=== PATIENT | female | born 2000 | race Caucasian/White ===

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

== ENCOUNTER 2020-04-28 21:04 | Observation (INO) ==
[2020-04-28] MEDS ORDERED: SODIUM CHLORIDE 0.9% 1000ML 2,000 ML IV ONE (21:21)
--- NOTE | 2020-04-28 21:33 | Emergency Department Note ---
Impression & Plan Vomiting blood, Abdominal pain, High serum chloride ED Provider Note NAME: LUIZ JEAN BAPTISTE AGE: 19 SEX: F : 2000 ARRIVES VIA: Walk-In INFORMANT: Patient ED PROVIDER(S): Handy Feng DO CHIEF COMPLAINT: Vomiting blood HPI: Patient is a 19-year-old female who presents the ER for right lower quadrant abdominal pain. Started earlier today. She describes it as about an 8 out of 10. No radiation. She does have a history of gastric ulcers. Notes that she does take Motrin/ibuprofen fairly regularly but not on a daily basis. She had an EGD through [facility] and was found to have gastric ulcers. She vomited about 4 times today each with at least a tablespoon of bright red blood. She notes that she has also been having dark tarry stools since the first of this month. She has also been having that right lower quadrant pain since then as well. Uncertain of the last menstrual period as she is on control. Denies any dysuria urgency or frequency. She admits to being scoped by [facility] when she was under 18 but has not been scoped by them since. ROS: See above HPI for pertinent positives & negatives. A total of 10 systems reviewed and were otherwise negative. PAST MEDICAL HISTORY:See Below PAST SURGICAL HISTORY:See Below FAMILY HISTORY:See Below SOCIAL HISTORY:See Below HOME MEDICATIONS:See Below ALLERGIES:See Below VITALS:See Below PHYSICAL EXAMINATION: GENERAL: Sitting up in bed, alert, well appearing, well nourished, no distress, non-toxic EYE EXAM: normal conjunctiva. PERRL and EOM's grossly intact. OROPHARYNX: no exudate, no erythema, lips, buccal mucosa, and tongue normal and mucous membranes are moist NECK: supple, no nuchal rigidity, no adenopathy, non-tender LUNGS: Clear to auscultation. Normal chest wall mechanics HEART: no murmurs, S1 normal and S2 normal ABDOMEN: abdomen soft, non-tender, normo-active bowel sounds, no masses, no rebound or guarding. RECTAL: Heme-negative formed with female tech at bedside. BACK: Back is symmetrical on inspection and there is no deformity, no midline tenderness, no CVA tenderness. SKIN: no rashes and no bruising UPPER EXTREMITIES: upper extremities are grossly normal. LOWER EXTREMITIES: No pitting edema. NEURO EXAM: Normal sensorium, cranial nerves II-XII grossly intact, normal speech, no gross weakness of arms, no gross weakness of legs. MEDICAL DECISION MAKING: Patient is a 19-year-old female who presents the ER for abdominal pain. This has been going on for a week. On exam she has mild diffuse tenderness. IV was established blood work was obtained. Labs show mild leukocytosis of 11,000 but no significant anemia. INR was unremarkable. BMP along with LFTs bilirubin and troponin was negative. Rectal was negative but there is no stool present. BUN was not elevated. Hemoglobin did drop 1 g from [address] abdomen pelvis shows no acute pathology. Patient was given GI cocktail, IV Protonix with minimal improvement. She was given IV morphine. Patient was given IV fluids and IV Zofran. Discussed with Pt concerning signs and symptoms to watch out for. Pt was instructed to follow up with their PCP and discussed with the patient their option to return to the ED at anytime for persistent or worsening symptoms. The appropriate anticipatory guidance and out-patient management, including indications for return to the emergency department, were explained at length to the patient and understood. Triage Nursing notes reviewed. Prior medical records reviewed Vital Signs: reviewed and remarkable for no significant abnormalities Differential diagnosis: Differential diagnosis includes etiologies such as diverticulitis, diverticulosis, AVM, coagulopathy, colitis, inflammatory bowel disease, malignancy, Arleen-Sinclair tear, esophagitis, peptic ulcer disease, variceal bleed, gastritis, epistaxis, fissure, hemorrhoids, as well as others were entertained. ER treatment provided: See below Diagnostics interpreted by me: ECG: none Cardiac Monitoring: An order was placed for continuous cardiac monitoring. The monitor shows a rate of 68 with sinus rhythm. Laboratory studies: As stated above and show below. Imaging studies: CT of the pelvis shows no acute pathology. Consultation(s): D/w Dr. Lyman ED COURSE: Procedures: none Critical Care: None Past Med/Surg History Social History Preferred Language: French Communication Ability: Effective [employer] Specialist Required: No Beliefs That Will Affect Care: None marital status: Single Current Living Situation: Family Current Living Situation Comment: Lives with parents Feels Safe at Home: Yes Smoking Status: Never smoker Tobacco Type: cigarettes ; Cigarettes Per Day: 6 ; Second Hand Exposure: Yes ; Hx Alcohol Use: No Hx Substance Use: No Allergies Allergies Allergy/AdvReac Type Severity Reaction Status Date / Time No Known Allergies Allergy NONE Verified 04/28/20 22:04 Home Meds Home Medications Medication Instructions Recorded Confirmed etonogestrel [Nexplanon] 0 mg SUBDERMAL CONTINOUS 04/22/20 04/28/20 fluoxetine 80 mg PO QAM 04/22/20 04/28/20 lamotrigine 100 mg PO QAM 04/22/20 04/28/20 melatonin 3 mg PO HS PRN 04/22/20 04/28/20 prazosin 1 mg PO HS 04/22/20 04/28/20 trazodone 50 mg PO HS PRN 04/22/20 04/28/20 Previous Rx's Medication Instructions Recorded docusate sodium [Colace] 100 mg PO BID #60 cap 04/22/20 oxycodone 5 mg PO Q6H PRN #14 tab 04/22/20 sennosides [Senokot] 8.6 mg PO HS #30 tab 04/22/20 Results & Data (ED) Vital Signs Vital Signs - 24 hr 04/28/20 21:05 04/28/20 21:34 Temperature 37.5 C Temperature Source Oral Pulse Rate 71 Pulse Rhythm Regular Pulse Strength Normal Respiratory Rate 16 Respiratory Effort / Characteristics Non-Labored Respiratory Depth Normal Respiratory Pattern Regular Blood Pressure 128/80 Blood Pressure Mean 96 Blood Pressure Position Sitting Pulse Oximetry 97 98 Oxygen Delivery Method Room Air Room Air Sepsis Recent Fever Within 48 Hours No Sepsis Action Taken by Nursing No Action Required Laboratory Data Result diagrams: 04/28/20 21:29 04/28/20 21:29 Lab Results 04/28/20 04/28/20 04/28/20 Range/Units 21:29 21:29 21:29 WBC 11.12 H (4.8-10.8) K/uL RBC 5.03 (4.2-5.4) M/uL Hgb 13.1 (12.0-16.0) g/dL POC Hgb (12.0-16.0) g/dl Hct 40.5 (37-47) % POC Hct (37-47) % MCV 80.5 (80-100) fL MCH 26.0 (25-34) pg MCHC 32.3 (32-36) g/dL RDW Std Deviation 42.8 (36.4-46.3) fL RDW Coeff of Matilda 14.6 H (11.5-14.5) % Plt Count 318 (130-400) K/uL MPV 10.4 (7.4-10.4) fL Immature Gran % (Auto) 0.1 % Neut % (Auto) 62.6 % Lymph % (Auto) 28.2 % [place] % (Auto) 7.6 % Eos % (Auto) 1.3 % Baso % (Auto) 0.2 % Neut # (Auto) 6.96 H (1.4-6.5) K/uL Lymph # (Auto) 3.14 (1.2-3.4) K/uL [place] # (Auto) 0.85 H (0.11-0.59) K/uL Eos # (Auto) 0.14 (0-0.5) K/uL Baso # (Auto) 0.02 (0-0.2) K/uL Immature Gran # (Auto) 0.01 (0.00-0.02) K/uL PT 10.3 (9.0-12.0) Seconds INR 1.0 (0.9-1.1) APTT 28.1 (21.0-31.0) Seconds PTT Ratio 1.0 POC Sodium (135-144) mmol/L Sodium 139 (136-145) mmol/L POC Potassium (3.3-5.0) mmol/L Potassium 4.0 (3.5-5.1) mmol/L POC Chloride (101-112) mmol/L Chloride 109 H (98-107) mmol/L Carbon Dioxide 24 (21-32) mmol/L POC Total CO2 (24-31) mmol/L Anion Gap 5.0 (3-11) POC Anion Gap (16-25) mmol/L POC BUN (7-18) mg/dl BUN 7 (7-18) mg/dl Creatinine 0.74 (0.6-1.2) mg/dl POC Creatinine mg/dl Est Cr Clr Drug Dosing 123.2 ml/min Est GFR ( Amer) 136.1 Est GFR (Non-Af Amer) 117.4 BUN/Creatinine Ratio 9.3 L (10-20) Glucose 93 (70-99) mg/dl POC Glucose (other) (70-99) mg/dl Calcium 9.5 (8.5-10.1) mg/dl POC Ioniz Calcium Jennifer mmol/l Total Bilirubin 0.3 (0.2-1) mg/dl AST 16 (15-37) U/L ALT 20 (12-78) U/L Alkaline Phosphatase 70 (45-117) U/L Troponin I < 0.015 (0-0.045) ng/ml Total Protein 7.3 (6.4-8.2) gm/dl Albumin 4.0 (3.4-5.0) gm/dl Globulin 3.3 (2.5-4.0) gm/dl Albumin/Globulin Ratio 1.2 (0.9-2) POC Stool Occult Blood (Negative) 04/28/20 04/28/20 Range/Units 21:34 21:39 WBC (4.8-10.8) K/uL RBC (4.2-5.4) M/uL Hgb (12.0-16.0) g/dL POC Hgb 12.9 (12.0-16.0) g/dl Hct (37-47) % POC Hct 38 (37-47) % MCV (80-100) fL MCH (25-34) pg MCHC (32-36) g/dL RDW Std Deviation (36.4-46.3) fL RDW Coeff of Matilda (11.5-14.5) % Plt Count (130-400) K/uL MPV (7.4-10.4) fL Immature Gran % (Auto) % Neut % (Auto) % Lymph % (Auto) % [place] % (Auto) % Eos % (Auto) % Baso % (Auto) % Neut # (Auto) (1.4-6.5) K/uL Lymph # (Auto) (1.2-3.4) K/uL [place] # (Auto) (0.11-0.59) K/uL Eos # (Auto) (0-0.5) K/uL Baso # (Auto) (0-0.2) K/uL Immature Gran # (Auto) (0.00-0.02) K/uL PT (9.0-12.0) Seconds INR (0.9-1.1) APTT (21.0-31.0) Seconds PTT Ratio POC Sodium 139 (135-144) mmol/L Sodium (136-145) mmol/L POC Potassium 4.0 (3.3-5.0) mmol/L Potassium (3.5-5.1) mmol/L POC Chloride 105 (101-112) mmol/L Chloride (98-107) mmol/L Carbon Dioxide (21-32) mmol/L POC Total CO2 21 L (24-31) mmol/L Anion Gap (3-11) POC Anion Gap 17.0 (16-25) mmol/L POC BUN 5 L (7-18) mg/dl BUN (7-18) mg/dl Creatinine (0.6-1.2) mg/dl POC Creatinine 0.6 mg/dl Est Cr Clr Drug Dosing ml/min Est GFR ( Amer) Est GFR (Non-Af Amer) BUN/Creatinine Ratio (10-20) Glucose (70-99) mg/dl POC Glucose (other) 96 (70-99) mg/dl Calcium (8.5-10.1) mg/dl POC Ioniz Calcium Jennifer 1.24 mmol/l Total Bilirubin (0.2-1) mg/dl AST (15-37) U/L ALT (12-78) U/L Alkaline Phosphatase (45-117) U/L Troponin I (0-0.045) ng/ml Total Protein (6.4-8.2) gm/dl Albumin (3.4-5.0) gm/dl Globulin (2.5-4.0) gm/dl Albumin/Globulin Ratio (0.9-2) POC Stool Occult Blood Negative (Negative) Administered Medications Sodium Chloride (Nss 1000ml) 2,000 mls @ 999 mls/hr IV .Q2H1M ONE Stop: 04/28/20 23:21 Last Admin: 04/28/20 21:36 Dose: 999 mls/hr Documented by: [id number] Ioversol (Optiray 320 100ml) 93 ml IV ONCE PRN PRN Reason: Interaction Checking Stop: 05/02/20 21:54 Last Admin: 04/28/20 21:55 Dose: 93 ml Documented by: [id number] Discontinued Medications Al Hydrox/Mg Hydrox/Simethicone () Confirm Administered Dose 1 dose PO .STK-MED ONE Stop: 04/28/20 22:08 Last Admin: 04/28/20 22:19 Dose: Not Given Documented by: [id number] Al Hydrox/Mg Hydrox/Simethicone 18 ml/ Lidocaine HCl 6 ml/ BARCODE IDENTIFIER 1 ea 0 ml PO ONE ONE Stop: 04/28/20 22:06 Last Admin: 04/28/20 22:17 Dose: 6 ml Documented by: [id number] Pantoprazole Sodium 40 mg/ (Syringe) 10 mls @ 5 mls/min IV NOW ONE Stop: 04/28/20 22:06 Last Admin: 04/28/20 22:17 Dose: 5 mls/min Documented by: [id number] Discharge Plan Visit Data Chief Complaint: GI Assessment Stated Complaint: ABD. PAIN, BLOOD IN STOOL, VOMITING BLOOD ED Provider: Handy Feng Discharge Problem: Vomiting blood, Abdominal pain, High serum chloride Forms Stand Alone Forms: [facility] Prescriptions Prescriptions: No Action prazosin 1 mg capsule 1 mg PO HS RF: 0 fluoxetine 40 mg capsule 80 mg PO QAM RF: 0 lamotrigine 100 mg tablet 100 mg PO QAM RF: 0 melatonin 3 mg Tablet 3 mg PO HS PRN (Reason: Insomnia) RF: 0 trazodone 50 mg tablet 50 mg PO HS PRN (Reason: Insomnia) RF: 0 Nexplanon 68 mg Implant 0 mg SUBDERMAL CONTINOUS RF: 0 oxycodone 5 mg tablet 5 mg PO Q6H PRN (Reason: pain) Qty: 14 RF: 0 sennosides [Senokot] 8.6 mg tablet 8.6 mg PO HS Qty: 30 RF: 0 docusate sodium [Colace] 100 mg capsule 100 mg PO BID Qty: 60 RF: 0 Discharge Problem: Vomiting blood Qualifiers: Nausea presence: with nausea Qualified Code(s): K92.0 - Hematemesis Abdominal pain Qualifiers: Abdominal location: unspecified location Qualified Code(s): R10.9 - Unspecified abdominal pain
[2020-04-28 21:37] LABS: Basophils # (auto) 0.02 K/uL (0-0.2); Basophils % (auto) 0.2 %; Eosinophils # (auto) 0.14 K/uL (0-0.5); Eosinophils % (auto) 1.3 %; Hematocrit (blood only) 40.5 % (37-47); Hemoglobin 13.1 g/dL (12.0-16.0); Immature Granulocytes # (auto) 0.01 K/uL (0.00-0.02); Immature Granulocytes % (auto) 0.1 %; Lymphocytes # (auto) 3.14 K/uL (1.2-3.4); Lymphocytes % (auto) 28.2 %; Mean Corpuscular Hgb Conc 32.3 g/dL (32-36); Mean Corpuscular Volume 80.5 fL (80-100); Mean Platelet Volume 10.4 fL (7.4-10.4); Monocytes # (auto) 0.85 K/uL (0.11-0.59); Monocytes % (auto) 7.6 %; Neutrophils # (auto) 6.96 K/uL (1.4-6.5); Neutrophils % (auto) 62.6 %; Platelet Count 318 K/uL (130-400); RDW Coefficient of Variation 14.6 % (11.5-14.5); RDW Standard Deviation 42.8 fL (36.4-46.3); Red Blood Count 5.03 M/uL (4.2-5.4); White Blood Count 11.12 K/uL (4.8-10.8)
[2020-04-28 21:48] LABS: Partial Thromboplastin Time 28.1 Seconds (21.0-31.0); Prothrombin Time 10.3 Seconds (9.0-12.0)
[2020-04-28 21:55] LABS: Alanine Aminotransferase 20 U/L (12-78); Aspartate Aminotransferase 16 U/L (15-37); BUN Creatinine Ratio 9.3 (10-20); Blood Urea Nitrogen 7 mg/dl (7-18); Calcium 9.5 mg/dl (8.5-10.1); Carbon Dioxide 24 mmol/L (21-32); Chloride 109 mmol/L (98-107); Creatinine Clr Calc Pharmacy 123.2 ml/min; Est GFR (African American) 136.1; Est GFR (Non-African American) 117.4; Glucose 93 mg/dl (70-99); Sodium 139 mmol/L (136-145)
[2020-04-28] MEDS ORDERED: IOVERSOL 100ml IV PRN (21:55)
[2020-04-28 21:59] LABS: Albumin Globulin Ratio 1.2 (0.9-2); Alkaline Phosphatase 70 U/L (45-117); Bilirubin,Total 0.3 mg/dl (0.2-1); Globulin 3.3 gm/dl (2.5-4.0); Total Protein 7.3 gm/dl (6.4-8.2); Troponin I < 0.015 ng/ml (0-0.045)
[2020-04-28 22:00] LABS: iSTAT Creatinine 0.6 mg/dl; iSTAT Hemoglobin 12.9 g/dl (12.0-16.0); iSTAT Ionized Calcium 1.24 mmol/l
[2020-04-28] MEDS ORDERED: PANTOprazole 40 MG in SYRINGE 0 ML IV ONE (22:05)
[2020-04-28] MEDS ORDERED: ALUMINUM/MAGNESIUM SUSP 18 ML, LIDOCAINE HCL VISCOUS 2% 6 ML, BARCODE IDENTIFIER 1 EA PO ONE (22:05)
[2020-04-28] MEDS ORDERED: GI COCKTAIL ED USE PO ONE (22:07)
[2020-04-28] MEDS ORDERED: MoRPHine SULFATE 4 MG/ML 1 ML CARP\\VIAL IV STA (23:00)
[2020-04-28] MEDS: PANTOprazole 40 MG in DEXTROSE 5% 100 ML IV SCH (23:25)
[2020-04-28 23:27] LABS: Magnesium 2.1 mg/dl (1.8-2.4)
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
[2020-04-28] MEDS ORDERED: cefTRIAXone SODIUM 1,000 MG in DEXTROSE 5% 50 ML IV SCH (23:47)
[2020-04-29 00:09] LABS: Appearance Urine Clear (Clear); Bilirubin Urine Negative (Negative); Blood Urine Negative (Negative); Color Urine Yellow; Epithelial Cell Urine Auto >30 /lpf (0-5); Glucose Urine UA Negative (Negative); Ketones Urine Negative (Negative); Leukocyte Esterase Urine Trace (Negative); Nitrite Urine Negative (Negative); Protein Urine Negative (Negative); RBC Urine Automated 0-4 /hpf (0-4); Specific Gravity Urine > 1.045 (1.000-1.030); Urobilinogen Urine Negative (Negative)
[2020-04-29 00:21] LABS: Cast Urine Automated 0 /lpf (0-5); Mucus Urine Present (None Prsent)
[2020-04-29 00:23] LABS: Bacteria Urine Automated 1+ (Negative)
[2020-04-29] MEDS ORDERED: LORazepam 0.25 MG/0.5 ML VIAL IV PRN (00:40)
[2020-04-29] MEDS ORDERED: PROMETHAZINE HCL 12.5 MG in SODIUM CHLORIDE 0.9% 50 ML IV PRN (00:40)
[2020-04-29] MEDS ORDERED: MoRPHine SULFATE 4 MG/ML 1 ML CARP\\VIAL IV PRN (00:40)
[2020-04-29] MEDS ORDERED: SODIUM CHLORIDE 0.9% 1000ML 1,000 ML IV SCH (00:40)
[2020-04-29] MEDS ORDERED: TRAZODONE HCL 50 MG TAB PO PRN (00:40)
[2020-04-29] MEDS ORDERED: MELATONIN 3 MG TAB PO PRN (00:40)
[2020-04-29] MEDS ORDERED: PRAZOSIN HCL 1 MG CAP PO SCH (01:00)
[2020-04-29 01:17] LABS: Hematocrit (blood only) 38.6 % (37-47); Hemoglobin 12.3 g/dL (12.0-16.0)
[2020-04-29] MEDS: OXYCODONE HCL IR 5 MG TAB (IMMEDIATE RELEASE) PO PRN ×3 (01:18→14:28)
[2020-04-29] MEDS ORDERED: cefTRIAXone SODIUM 1,000 MG in DEXTROSE 5% 50 ML IV SCH (02:15)
[2020-04-29] MEDS: PANTOprazole 40 MG in DEXTROSE 5% 100 ML IV SCH ×3 (03:48→13:31)
[2020-04-29 06:50] LABS: Basophils # (auto) 0.02 K/uL (0-0.2); Basophils % (auto) 0.2 %; Eosinophils # (auto) 0.15 K/uL (0-0.5); Eosinophils % (auto) 1.8 %; Hematocrit (blood only) 37.6 % (37-47); Hemoglobin 11.9 g/dL (12.0-16.0); Immature Granulocytes # (auto) 0.02 K/uL (0.00-0.02); Immature Granulocytes % (auto) 0.2 %; Lymphocytes # (auto) 3.17 K/uL (1.2-3.4); Lymphocytes % (auto) 38.7 %; Mean Corpuscular Hemoglobin 25.7 pg (25-34); Mean Corpuscular Hgb Conc 31.6 g/dL (32-36); Mean Corpuscular Volume 81.2 fL (80-100); Mean Platelet Volume 10.3 fL (7.4-10.4); Monocytes # (auto) 0.71 K/uL (0.11-0.59); Monocytes % (auto) 8.7 %; Neutrophils # (auto) 4.13 K/uL (1.4-6.5); Neutrophils % (auto) 50.4 %; Platelet Count 255 K/uL (130-400); RDW Coefficient of Variation 14.6 % (11.5-14.5); RDW Standard Deviation 43.2 fL (36.4-46.3); Red Blood Count 4.63 M/uL (4.2-5.4)
[2020-04-29 07:15] LABS: BUN Creatinine Ratio 7.8 (10-20); Calcium 8.4 mg/dl (8.5-10.1); Creatinine Clr Calc Pharmacy 137.2 ml/min; Est GFR (African American) 147.7; Est GFR (Non-African American) 127.4; Potassium 3.9 mmol/L (3.5-5.1)
--- NOTE | 2020-04-29 07:16 | CT Scan Report ---
CT OF THE ABDOMEN AND PELVIS WITH CONTRAST CLINICAL HISTORY: Right lower quadrant abdominal pain. COMPARISON STUDY: CT of the abdomen and pelvis April 22, 2020. TECHNIQUE: Following IV administration of 93 mL of Optiray-320, axial images of the abdomen and pelvi s were obtained from the lung bases to the proximal femurs. Images were reviewed in the axial, sagitt al, and coronal planes. IV contrast was administered without complication. Automated exposure contro l was utilized for the study. A dose lowering technique was utilized adhering to the principles of A KEYLA. CT DOSE: 527.71 mGy.cm FINDINGS: Lung bases are unremarkable. No pneumatosis, free air or portal venous gas is present. The liver, spleen, adrenal glands, kidneys and pancreas are unremarkable. There is no biliary or pancreat ic ductal dilatation. There is no peripancreatic or pelvic cholecystic infiltration. No hydronephrosi s or hydroureter is noted. The appendix is normal. The caliber and wall thickness of small and large bowel are normal. Major vasculature is patent. 4.3 cm right ovarian cyst is noted. IMPRESSION: 1. Normal appendix. No bowel obstruction. 2. 4.3 cm right ovarian cyst. ACT 112: Negative or not required by law. Electronically signed by: Alexi Newell M.D. 04/29/2020 7:14 AM
--- NOTE | 2020-04-29 08:01 | Gastrointestinal Consultation ---
Date of Consultation April 29, 2020 Assessment & Plan (1) Vomiting blood: 19 y/o female pt with PMHx gastric ulcers 2017, admitted with hematemesis/melena yesterday. Symptoms have not recurred since admission, and with stable HGB of 12 and normal BUN along with stable VS, this would suggest a gainst brisk UGIB. Abd is soft. She has risk factors for gastritis/esophagitis, ulcer disease including NSAID use and prior hx. - Would continue PPI BID - Avoid NSAIDs and other GI irritants - Trend H&H - Monitor GI output - She states she used to be on oral iron for ROSITA, but has had no recent ferritin level; check iron, ferritin and start oral replacement if needed - Consider RN CALL CENTER follow-up of ovarian cyst - Can start clear liquids this AM; advance as tolerated - Discussed with pt pursuing outpt EGD in f/u of her symptoms and she is agreeable. Our office will arrange - GI will sign off Thank you for allowing us to participate in the care of this patient. Please call with any acute changes, questions or concerns. Please see addendum below with additional recommendation from my supervising physician. (2) Abdominal pain: Supervising Physician Co-Signing Physician Notes I have seen and examined the patient and discussed the management with Tmaika Arreaga PA-C. 19 yo fm admitted through the ER for rlq pain, imaging showing no evidence of appendicitis and right ovarian cyst. Incidentally reporting hematemesis though none since admission, hgb essentially stable, no bun rise. Last EGD in [place] showing gastric ulcers. Labs reviewed, imaging reviewed. PE notable for being a female in nad, anicteric sclera, normal excursion of chest, wincing with abdominal exam but no i abdominal pain. BID PPI. Outpatient EGD - will be arranged likely at [facility] through the [facility] GI office. History of Present Illness Reason for Consultation: UGIB Attending Physician: Chichi Galindo MD History of Present Illness This is a 19 y/o female pt with PMHx mood/anxiety disorder, h/u PUD in 2017, constipation, who's had ongoing stabby RLQ abd pain since last week, and developed acute onset of bright red hematemesis/black tarry stools yesterday x 4-5. On arrival HGB 13 (baseline 14), with normal BUN, renal and hepatic fxn. CTAP with no bowel obstruction, but 4 cm right ovarian cyst (previously noted on CT done last week for abd pain). UA suspicious for UTI and UC pending; she's on empiric ABX and IV PPI. Today she notes continued stabby RLQ discomfort, no upper abd pain, no further hematemesis/melena, no hematochezia; no BM since admission. HGB 12, BUN remains stable; VSS. Typically stools are brown, formed. Denies heartburn, dysphagia, weight loss. She has been taking NSAIDs for pain recently (sometimes 10 ibuprofen a day). She vapes, no ETOH. No fam hx GI disorders, malignancy. She used to be on oral iron for ROSITA; iron levels haven't been checked recently. EGD 2017 - nonbleeding gastric ulcers Allergies Allergy/AdvReac Type Severity Reaction Status Date / Time nicotine Allergy Mild unknown Verified 04/29/20 00:10 Home Medications Home Medications Medication Instructions Recorded Confirmed Type docusate sodium [Colace] 100 mg PO BID #60 cap 04/22/20 04/28/20 Rx etonogestrel [Nexplanon] 0 mg SUBDERMAL CONTINOUS 04/22/20 04/28/20 History fluoxetine 80 mg PO QAM 04/22/20 04/28/20 History lamotrigine 100 mg PO QAM 04/22/20 04/28/20 History melatonin 3 mg PO HS PRN 04/22/20 04/28/20 History oxycodone 5 mg PO Q6H PRN #14 tab 04/22/20 04/28/20 Rx prazosin 1 mg PO HS 04/22/20 04/28/20 History sennosides [Senokot] 8.6 mg PO HS #30 tab 04/22/20 04/28/20 Rx trazodone 50 mg PO HS PRN 04/22/20 04/28/20 History Patient History Social History Preferred Language: Greek Communication Ability: Effective Wood Gang Sawyer Required: No Beliefs That Will Affect Care: None marital status: Single Current Living Situation: Family Current Living Situation Comment: Lives with parents Feels Safe at Home: Yes Smoking Status: Current every day smoker Tobacco Type: cigarettes ; Cigarettes Per Day: 6 ; Do You Dip or Chew Tobacco: No ; Second Hand Exposure: Yes ; Tobacco Cessation Education Requested by Patient: No Hx Alcohol Use: No Hx Substance Use: No Review of Systems Constitutional: no fever, no body aches and no weight loss Respiratory: no cough and no dyspnea Cardiovascular: no chest pain and no edema Gastrointestinal: as per Subjective / HPI Genitourinary: no dysuria, no difficulty urinating and no hematuria Integumentary: no rash Psychiatric: as per Subjective / HPI Hematologic / Lymphatic: no easy bleeding and no easy bruising Physical Exam Constitutional: WD/WN, vitals as above Respiratory: normal respiratory effort, lungs clear to auscultation Cardiovascular: Rate/Rhythm: regular rate and regular rhythm Gastrointestinal (Abdomen): Inspection/Auscultation: normal bowel sounds; abdomen not distended Percussion/Palpation: abdomen soft; no guarding + moderate RLQ tenderness, no rebound Skin: no rashes, warm and dry Psychiatric: A+Ox3, euthymic affect Results & Data ([facility]) Vital Signs (Past 12 Hours) Vital Signs Temp Pulse Pulse Resp BP BP Pulse Ox 04/29/20 07:11 36.4 C L 65 18 102/60 97 04/29/20 07:01 62 04/29/20 04:00 37.6 C H 72 18 108/68 98 04/29/20 03:24 63 04/29/20 01:00 36.4 C L 59 L 16 114/72 94 04/29/20 00:25 37.2 C 72 18 124/79 98 04/28/20 21:34 98 04/28/20 21:05 37.5 C 71 16 128/80 97 Laboratory Results 04/29/20 04/29/20 04/29/20 Range/Units 06:34 06:34 00:56 WBC 8.20 (4.8-10.8) K/uL RBC 4.63 (4.2-5.4) M/uL Hgb 11.9 L 12.3 (12.0-16.0) g/dL POC Hgb (12.0-16.0) g/dl Hct 37.6 38.6 (37-47) % POC Hct (37-47) % MCV 81.2 (80-100) fL MCH 25.7 (25-34) pg MCHC 31.6 L (32-36) g/dL RDW Std Deviation 43.2 (36.4-46.3) fL RDW Coeff of Matilda 14.6 H (11.5-14.5) % Plt Count 255 (130-400) K/uL MPV 10.3 (7.4-10.4) fL Immature Gran % (Auto) 0.2 % Neut % (Auto) 50.4 % Lymph % (Auto) 38.7 % [place] % (Auto) 8.7 % Eos % (Auto) 1.8 % Baso % (Auto) 0.2 % Neut # (Auto) 4.13 (1.4-6.5) K/uL Lymph # (Auto) 3.17 (1.2-3.4) K/uL [place] # (Auto) 0.71 H (0.11-0.59) K/uL Eos # (Auto) 0.15 (0-0.5) K/uL Baso # (Auto) 0.02 (0-0.2) K/uL Immature Gran # (Auto) 0.02 (0.00-0.02) K/uL PT (9.0-12.0) Seconds INR (0.9-1.1) APTT (21.0-31.0) Seconds PTT Ratio POC Sodium (135-144) mmol/L Sodium 141 (136-145) mmol/L POC Potassium (3.3-5.0) mmol/L Potassium 3.9 (3.5-5.1) mmol/L POC Chloride (101-112) mmol/L Chloride 113 H (98-107) mmol/L Carbon Dioxide 23 (21-32) mmol/L POC Total CO2 (24-31) mmol/L Anion Gap 5.0 (3-11) POC Anion Gap (16-25) mmol/L POC BUN (7-18) mg/dl BUN 5 L (7-18) mg/dl Creatinine 0.67 (0.6-1.2) mg/dl POC Creatinine mg/dl Est Cr Clr Drug Dosing 137.2 ml/min Est GFR ( Amer) 147.7 Est GFR (Non-Af Amer) 127.4 BUN/Creatinine Ratio 7.8 L (10-20) Glucose 95 (70-99) mg/dl POC Glucose (other) (70-99) mg/dl Calcium 8.4 L (8.5-10.1) mg/dl POC Ioniz Calcium Jennifer mmol/l Magnesium (1.8-2.4) mg/dl Total Bilirubin (0.2-1) mg/dl AST (15-37) U/L ALT (12-78) U/L Alkaline Phosphatase (45-117) U/L Troponin I (0-0.045) ng/ml Total Protein (6.4-8.2) gm/dl Albumin (3.4-5.0) gm/dl Globulin (2.5-4.0) gm/dl Albumin/Globulin Ratio (0.9-2) Urine Color Urine Appearance (Clear) Urine pH (4.5-7.5) Ur Specific [place] (1.000-1.030) Urine Protein (Negative) Urine Glucose (UA) (Negative) Urine Ketones (Negative) Urine Blood (Negative) Urine Nitrite (Negative) Urine Bilirubin (Negative) Urine Urobilinogen (Negative) Ur Leukocyte Esterase (Negative) Urine WBC (Auto) (0-5) /hpf Urine RBC (Auto) (0-4) /hpf U Hyaline Cast (Auto) (0-5) /lpf U Epithel Cells (Auto) (0-5) /lpf Urine Bacteria (Auto) (Negative) Urine Mucus (None Prsent) Urine Yeast (None Prsent) POC Stool Occult Blood (Negative) Blood Type Antibody Screen 04/28/20 04/28/20 04/28/20 Range/Units 22:00 21:39 21:34 WBC (4.8-10.8) K/uL RBC (4.2-5.4) M/uL Hgb (12.0-16.0) g/dL POC Hgb 12.9 (12.0-16.0) g/dl Hct (37-47) % POC Hct 38 (37-47) % MCV (80-100) fL MCH (25-34) pg MCHC (32-36) g/dL RDW Std Deviation (36.4-46.3) fL RDW Coeff of Matilda (11.5-14.5) % Plt Count (130-400) K/uL MPV (7.4-10.4) fL Immature Gran % (Auto) % Neut % (Auto) % Lymph % (Auto) % [place] % (Auto) % Eos % (Auto) % Baso % (Auto) % Neut # (Auto) (1.4-6.5) K/uL Lymph # (Auto) (1.2-3.4) K/uL [place] # (Auto) (0.11-0.59) K/uL Eos # (Auto) (0-0.5) K/uL Baso # (Auto) (0-0.2) K/uL Immature Gran # (Auto) (0.00-0.02) K/uL PT (9.0-12.0) Seconds INR (0.9-1.1) APTT (21.0-31.0) Seconds PTT Ratio POC Sodium 139 (135-144) mmol/L Sodium (136-145) mmol/L POC Potassium 4.0 (3.3-5.0) mmol/L Potassium (3.5-5.1) mmol/L POC Chloride 105 (101-112) mmol/L Chloride (98-107) mmol/L Carbon Dioxide (21-32) mmol/L POC Total CO2 21 L (24-31) mmol/L Anion Gap (3-11) POC Anion Gap 17.0 (16-25) mmol/L POC BUN 5 L (7-18) mg/dl BUN (7-18) mg/dl Creatinine (0.6-1.2) mg/dl POC Creatinine 0.6 mg/dl Est Cr Clr Drug Dosing ml/min Est GFR ( Amer) Est GFR (Non-Af Amer) BUN/Creatinine Ratio (10-20) Glucose (70-99) mg/dl POC Glucose (other) 96 (70-99) mg/dl Calcium (8.5-10.1) mg/dl POC Ioniz Calcium Jennifer 1.24 mmol/l Magnesium (1.8-2.4) mg/dl Total Bilirubin (0.2-1) mg/dl AST (15-37) U/L ALT (12-78) U/L Alkaline Phosphatase (45-117) U/L Troponin I (0-0.045) ng/ml Total Protein (6.4-8.2) gm/dl Albumin (3.4-5.0) gm/dl Globulin (2.5-4.0) gm/dl Albumin/Globulin Ratio (0.9-2) Urine Color Yellow Urine Appearance Clear (Clear) Urine pH 8.0 H (4.5-7.5) Ur Specific [place] > 1.045 H (1.000-1.030) Urine Protein Negative (Negative) Urine Glucose (UA) Negative (Negative) Urine Ketones Negative (Negative) Urine Blood Negative (Negative) Urine Nitrite Negative (Negative) Urine Bilirubin Negative (Negative) Urine Urobilinogen Negative (Negative) Ur Leukocyte Esterase Trace H (Negative) Urine WBC (Auto) 1-5 (0-5) /hpf Urine RBC (Auto) 0-4 (0-4) /hpf U Hyaline Cast (Auto) 0 (0-5) /lpf U Epithel Cells (Auto) >30 H (0-5) /lpf Urine Bacteria (Auto) 1+ H (Negative) Urine Mucus Present A (None Prsent) Urine Yeast Present A (None Prsent) POC Stool Occult Blood Negative (Negative) Blood Type Antibody Screen 04/28/20 04/28/20 04/28/20 Range/Units 21:29 21:29 21:29 WBC 11.12 H (4.8-10.8) K/uL RBC 5.03 (4.2-5.4) M/uL Hgb 13.1 (12.0-16.0) g/dL POC Hgb (12.0-16.0) g/dl Hct 40.5 (37-47) % POC Hct (37-47) % MCV 80.5 (80-100) fL MCH 26.0 (25-34) pg MCHC 32.3 (32-36) g/dL RDW Std Deviation 42.8 (36.4-46.3) fL RDW Coeff of Matilda 14.6 H (11.5-14.5) % Plt Count 318 (130-400) K/uL MPV 10.4 (7.4-10.4) fL Immature Gran % (Auto) 0.1 % Neut % (Auto) 62.6 % Lymph % (Auto) 28.2 % [place] % (Auto) 7.6 % Eos % (Auto) 1.3 % Baso % (Auto) 0.2 % Neut # (Auto) 6.96 H (1.4-6.5) K/uL Lymph # (Auto) 3.14 (1.2-3.4) K/uL [place] # (Auto) 0.85 H (0.11-0.59) K/uL Eos # (Auto) 0.14 (0-0.5) K/uL Baso # (Auto) 0.02 (0-0.2) K/uL Immature Gran # (Auto) 0.01 (0.00-0.02) K/uL PT 10.3 (9.0-12.0) Seconds INR 1.0 (0.9-1.1) APTT 28.1 (21.0-31.0) Seconds PTT Ratio 1.0 POC Sodium (135-144) mmol/L Sodium 139 (136-145) mmol/L POC Potassium (3.3-5.0) mmol/L Potassium 4.0 (3.5-5.1) mmol/L POC Chloride (101-112) mmol/L Chloride 109 H (98-107) mmol/L Carbon Dioxide 24 (21-32) mmol/L POC Total CO2 (24-31) mmol/L Anion Gap 5.0 (3-11) POC Anion Gap (16-25) mmol/L POC BUN (7-18) mg/dl BUN 7 (7-18) mg/dl Creatinine 0.74 (0.6-1.2) mg/dl POC Creatinine mg/dl Est Cr Clr Drug Dosing 123.2 ml/min Est GFR ( Amer) 136.1 Est GFR (Non-Af Amer) 117.4 BUN/Creatinine Ratio 9.3 L (10-20) Glucose 93 (70-99) mg/dl POC Glucose (other) (70-99) mg/dl Calcium 9.5 (8.5-10.1) mg/dl POC Ioniz Calcium Jennifer mmol/l Magnesium 2.1 (1.8-2.4) mg/dl Total Bilirubin 0.3 (0.2-1) mg/dl AST 16 (15-37) U/L ALT 20 (12-78) U/L Alkaline Phosphatase 70 (45-117) U/L Troponin I < 0.015 (0-0.045) ng/ml Total Protein 7.3 (6.4-8.2) gm/dl Albumin 4.0 (3.4-5.0) gm/dl Globulin 3.3 (2.5-4.0) gm/dl Albumin/Globulin Ratio 1.2 (0.9-2) Urine Color Urine Appearance (Clear) Urine pH (4.5-7.5) Ur Specific [place] (1.000-1.030) Urine Protein (Negative) Urine Glucose (UA) (Negative) Urine Ketones (Negative) Urine Blood (Negative) Urine Nitrite (Negative) Urine Bilirubin (Negative) Urine Urobilinogen (Negative) Ur Leukocyte Esterase (Negative) Urine WBC (Auto) (0-5) /hpf Urine RBC (Auto) (0-4) /hpf U Hyaline Cast (Auto) (0-5) /lpf U Epithel Cells (Auto) (0-5) /lpf Urine Bacteria (Auto) (Negative) Urine Mucus (None Prsent) Urine Yeast (None Prsent) POC Stool Occult Blood (Negative) Blood Type Antibody Screen 04/28/20 Range/Units 21:29 WBC (4.8-10.8) K/uL RBC (4.2-5.4) M/uL Hgb (12.0-16.0) g/dL POC Hgb (12.0-16.0) g/dl Hct (37-47) % POC Hct (37-47) % MCV (80-100) fL MCH (25-34) pg MCHC (32-36) g/dL RDW Std Deviation (36.4-46.3) fL RDW Coeff of Matilda (11.5-14.5) % Plt Count (130-400) K/uL MPV (7.4-10.4) fL Immature Gran % (Auto) % Neut % (Auto) % Lymph % (Auto) % George % (Auto) % Eos % (Auto) % Baso % (Auto) % Neut # (Auto) (1.4-6.5) K/uL Lymph # (Auto) (1.2-3.4) K/uL [place] # (Auto) (0.11-0.59) K/uL Eos # (Auto) (0-0.5) K/uL Baso # (Auto) (0-0.2) K/uL Immature Gran # (Auto) (0.00-0.02) K/uL PT (9.0-12.0) Seconds INR (0.9-1.1) APTT (21.0-31.0) Seconds PTT Ratio POC Sodium (135-144) mmol/L Sodium (136-145) mmol/L POC Potassium (3.3-5.0) mmol/L Potassium (3.5-5.1) mmol/L POC Chloride (101-112) mmol/L Chloride (98-107) mmol/L Carbon Dioxide (21-32) mmol/L POC Total CO2 (24-31) mmol/L Anion Gap (3-11) POC Anion Gap (16-25) mmol/L POC BUN (7-18) mg/dl BUN (7-18) mg/dl Creatinine (0.6-1.2) mg/dl POC Creatinine mg/dl Est Cr Clr Drug Dosing ml/min Est GFR ( Amer) Est GFR (Non-Af Amer) BUN/Creatinine Ratio (10-20) Glucose (70-99) mg/dl POC Glucose (other) (70-99) mg/dl Calcium (8.5-10.1) mg/dl POC Ioniz Calcium Jennifer mmol/l Magnesium (1.8-2.4) mg/dl Total Bilirubin (0.2-1) mg/dl AST (15-37) U/L ALT (12-78) U/L Alkaline Phosphatase (45-117) U/L Troponin I (0-0.045) ng/ml Total Protein (6.4-8.2) gm/dl Albumin (3.4-5.0) gm/dl Globulin (2.5-4.0) gm/dl Albumin/Globulin Ratio (0.9-2) Urine Color Urine Appearance (Clear) Urine pH (4.5-7.5) Ur Specific [place] (1.000-1.030) Urine Protein (Negative) Urine Glucose (UA) (Negative) Urine Ketones (Negative) Urine Blood (Negative) Urine Nitrite (Negative) Urine Bilirubin (Negative) Urine Urobilinogen (Negative) Ur Leukocyte Esterase (Negative) Urine WBC (Auto) (0-5) /hpf Urine RBC (Auto) (0-4) /hpf U Hyaline Cast (Auto) (0-5) /lpf U Epithel Cells (Auto) (0-5) /lpf Urine Bacteria (Auto) (Negative) Urine Mucus (None Prsent) Urine Yeast (None Prsent) POC Stool Occult Blood (Negative) Blood Type O Positive Antibody Screen NEGATIVE Diagnostic Findings CTAP 04/28/20: 1. Normal appendix. No bowel obstruction. 2. 4.3 cm right ovarian cyst. (1) Vomiting blood Nausea presence: with nausea Qualified Code(s): K92.0 - Hematemesis (2) Abdominal pain Abdominal location: left lower quadrant Qualified Code(s): R10.32 - Left lower quadrant pain
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
[2020-04-29] MEDS ORDERED: FLUOXETINE HCL 20 MG CAP PO SCH (09:00)
[2020-04-29] MEDS ORDERED: lamoTRIgine 100 MG TAB PO SCH (09:00)
[2020-04-29 10:51] LABS: Ferritin 4.2 ng/ml (8-388)
[2020-04-29 12:00] LABS: Hematocrit (blood only) 36.6 % (37-47); Hemoglobin 11.7 g/dL (12.0-16.0)
[2020-04-29] MEDS: ACETAMINOPHEN 325 MG TAB PO PRN ×2 (12:27→16:44)
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
--- NOTE | 2020-04-29 22:39 | Electrocardiogram Report ---
Test Reason : Blood Pressure : / mmHG Vent. Rate : 069 BPM Atrial Rate : 069 BPM P-R Int : 124 ms QRS Dur : 090 ms QT Int : 390 ms P-R-T Axes : 026 077 049 degrees QTc Int : 417 ms Normal sinus rhythm Normal ECG When compared with ECG of 07-MAY-2018 17:46, No significant change was found Confirmed by Reece Sue ([id number]) on 04/29/2020 10:39:07 PM Referred By: REFERRED SELF Confirmed By:Reece Sue
== END 2020-04-29 17:53 | disposition home or self-care (01) ==
LOC: ED 21:04 → 2N 21:04

== ENCOUNTER 2022-01-22 22:01 | Observation (INO) ==
[2022-01-22] MEDS ORDERED: SODIUM CHLORIDE 0.9% 1000ML 2,000 ML IV ONE (22:14)
[2022-01-22] MEDS ORDERED: ONDANSETRON INJ 2 MG/ML 2 ML VIAL IV STA (22:14)
[2022-01-22] MEDS ORDERED: PANTOPRAZOLE BOLUS/DRIP 1 EA IV STA (22:23)
[2022-01-22] MEDS ORDERED: PANTOprazole 80 MG in DEXTROSE 5% 100 ML IV ONE (22:23)
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
[2022-01-22 22:44] LABS: Appearance Urine Clear (Clear); Bacteria Urine Automated Negative (Negative); Bilirubin Urine Negative (Negative); Blood Urine 1+ (Negative); Color Urine Yellow; Glucose Urine UA Negative (Negative); Ketones Urine Negative (Negative); Leukocyte Esterase Urine Negative (Negative); Nitrite Urine Negative (Negative); Protein Urine Negative (Negative); Specific Gravity Urine 1.017 (1.000-1.030); Urobilinogen Urine Negative (Negative)
[2022-01-22 22:54] LABS: Basophils # (auto) 0.04 K/uL (0-0.2); Basophils % (auto) 0.3 %; Eosinophils # (auto) 0.26 K/uL (0-0.5); Hematocrit (blood only) 38.9 % (37-47); Hemoglobin 13.3 g/dL (12.0-16.0); Immature Granulocytes # (auto) 0.03 K/uL (0.00-0.02); Immature Granulocytes % (auto) 0.2 %; Lymphocytes # (auto) 4.35 K/uL (1.2-3.4); Lymphocytes % (auto) 33.4 %; Mean Corpuscular Hemoglobin 28.1 pg (25-34); Mean Corpuscular Hgb Conc 34.2 g/dL (32-36); Mean Corpuscular Volume 82.2 fL (80-100); Mean Platelet Volume 10.4 fL (7.4-10.4); Monocytes # (auto) 0.92 K/uL (0.11-0.59); Monocytes % (auto) 7.1 %; Neutrophils # (auto) 7.43 K/uL (1.4-6.5); Platelet Count 324 K/uL (130-400); RDW Coefficient of Variation 12.6 % (11.5-14.5); Red Blood Count 4.73 M/uL (4.2-5.4); White Blood Count 13.03 K/uL (4.8-10.8)
[2022-01-22] MEDS: PANTOprazole 40 MG in DEXTROSE 5% 100 ML IV SCH (23:12)
[2022-01-22 23:13] LABS: Alanine Aminotransferase 17 U/L (7-52); Albumin Level 4.3 gm/dl (3.4-5.0); Alkaline Phosphatase 59 U/L (34-104); Anion Gap 8 (3-11); Aspartate Aminotransferase 18 U/L (13-39); BUN Creatinine Ratio 12.2 (10-20); Bilirubin,Total 0.3 mg/dl (0.2-1.0); Blood Urea Nitrogen 10 mg/dl (6-23); Calcium 9.2 mg/dl (8.5-10.1); Carbon Dioxide 23 mmol/L (21-32); Chloride 108 mmol/L (98-107); Est GFR (African American) 118.6 ml/min; Est GFR (Non-African American) 102.3 ml/min; Glucose 102 mg/dl (70-99(Fasting)); Lipase 39 U/L (11-82); Potassium 3.7 mmol/L (3.5-5.1); Sodium 139 mmol/L (136-145); Total Protein 6.7 gm/dl (6.0-8.3)
[2022-01-23] MEDS ORDERED: MoRPHine SULFATE 4 MG/ML 1 ML CARP\\VIAL IV STA (00:24)
[2022-01-23] MEDS ORDERED: ONDANSETRON INJ 2 MG/ML 2 ML VIAL IV STA (00:25)
[2022-01-23] MEDS ORDERED: SODIUM CHLORIDE 0.9% 1000ML 1,000 ML IV SCH (00:30)
[2022-01-23] MEDS ORDERED: ALBUTEROL HFA 8 GM INHALER INH PRN (02:15)
[2022-01-23] MEDS ORDERED: LOPERAMIDE HCL 2 MG CAP PO PRN (02:15)
[2022-01-23] MEDS ORDERED: ACETAMINOPHEN 325 MG TAB PO PRN (02:15)
[2022-01-23] MEDS ORDERED: traZODone HCL 50 MG TAB PO PRN (02:15)
[2022-01-23] MEDS ORDERED: ONDANSETRON INJ 2 MG/ML 2 ML VIAL IV PRN (02:15)
[2022-01-23] MEDS ORDERED: QUEtiapine FUMARATE 25 MG TABLET PO PRN (02:15)
[2022-01-23] MEDS ORDERED: MELATONIN 3 MG TAB PO PRN (02:25)
[2022-01-23] MEDS: HYDROmorphone INJ 0.5 MG/0.5 ML SYR IV PRN ×4 (02:33→19:39)
[2022-01-23] MEDS: D5W AND NSS 1,000 ML IV SCH ×3 (02:36→22:53)
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
[2022-01-23] MEDS: PANTOprazole 40 MG in DEXTROSE 5% 100 ML IV SCH ×4 (04:41→22:53)
[2022-01-23 06:03] LABS: Basophils # (auto) 0.03 K/uL (0-0.2); Basophils % (auto) 0.3 %; Eosinophils # (auto) 0.21 K/uL (0-0.5); Hematocrit (blood only) 36.3 % (37-47); Hemoglobin 11.9 g/dL (12.0-16.0); Hemoglobin 12.1 g/dL (12.0-16.0); Immature Granulocytes # (auto) 0.01 K/uL (0.00-0.02); Immature Granulocytes % (auto) 0.1 %; Lymphocytes # (auto) 4.05 K/uL (1.2-3.4); Mean Corpuscular Hemoglobin 28.2 pg (25-34); Mean Corpuscular Volume 82.9 fL (80-100); Mean Platelet Volume 10.6 fL (7.4-10.4); Monocytes # (auto) 0.73 K/uL (0.11-0.59); Monocytes % (auto) 6.8 %; Neutrophils # (auto) 5.64 K/uL (1.4-6.5); Neutrophils % (auto) 52.8 %; Platelet Count 274 K/uL (130-400); RDW Coefficient of Variation 12.8 % (11.5-14.5); RDW Standard Deviation 38.9 fL (36.4-46.3); Red Blood Count 4.22 M/uL (4.2-5.4); White Blood Count 10.67 K/uL (4.8-10.8)
[2022-01-23 06:26] LABS: BUN Creatinine Ratio 14.9 (10-20); Calcium 8.3 mg/dl (8.5-10.1); Creatinine Clr Calc Pharmacy 93.1 ml/min; Est GFR (African American) 134.2 ml/min; Est GFR (Non-African American) 115.8 ml/min; Magnesium 1.8 mg/dl (1.7-2.4); Potassium 3.7 mmol/L (3.5-5.1)
--- NOTE | 2022-01-23 07:27 | XRay Report ---
PA CHEST RADIOGRAPH AND UPRIGHT AND SUPINE AP RADIOGRAPHS OF THE ABDOMEN CLINICAL HISTORY: vomiting COMPARISON STUDY: Chest radiograph and abdominal series January 20, 2022. CT of the abdomen and pelvis September 06, 2021. FINDINGS: Lung volumes are normal. Lungs are clear. No pneumothorax or pleural effusion. Cardiac siz e is normal. Mediastinal contours are normal. No evidence for pulmonary edema. There is no free air. The bowel gas pattern is normal. No evidence for a bowel obstruction. No calcifications are identifie d. IMPRESSION: 1. No free air or evidence of a bowel obstruction. 2. No acute cardiopulmonary findings. ACT 112: Negative or not required by law. Electronically signed by: Alexi Newell M.D. 01/23/2022 7:26 AM
[2022-01-23] MEDS: lamoTRIgine 100 MG TAB PO SCH (07:54)
[2022-01-23] MEDS: ARIPiprazole 10 MG TAB PO SCH (07:55)
[2022-01-23] MEDS: FAMOTIDINE 20 MG TAB PO SCH ×2 (07:55→20:41)
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
[2022-01-23 10:03] LABS: Amphetamines+Metham, Urine Neg (Neg); Barbiturates, Urine Neg (Neg); Benzodiazepine, Urine Neg (Neg); Cocaine, Urine Neg (Neg); MDMA (Ecstacy), Urine Neg (Neg); Methadone, Urine Neg (Neg); Opiate, Urine Pos (Neg); Phencyclidine, Urine Neg (Neg)
[2022-01-23 11:01] LABS: Hemoglobin 12.8 g/dL (12.0-16.0)
--- NOTE | 2022-01-23 16:39 | Hospitalist Progress Note ---
Date of Service January 23, 2022 Assessment & Plan (1) Intractable nausea and vomiting: (2) Vomiting and diarrhea: Plan: 21-year-old female presented to ED with intractable nausea and vomiting with diarrhea for the past week Nausea/vomiting with diarrhea-continues with nausea and vomiting with diarrhea improved. Seen by GI-plan for EGD tomorrow. N.p.o. after midnight. Continue clears for today, PPI, IVF, antiemetics, analgesics. Follow-up on UDS. Depression and anxiety-continue Seroquel, Lamictal, aripiprazole Admission and Anticipated Discharge Date Admission Date: January 23, 2022 Subjective Patient was seen and examined at bedside. Complaining of abdominal pain and requesting adjustment in pain medication. Also had an episode of vomiting this morning. She is hungry and willing to try clears. Bowel movements seems to have slowed down even prior to coming to the hospital. No fever, chills, chest pain or shortness of breath. Physical Exam Physical Exam: General: Lying comfortably in bed, not in distress, on room air HEENT: EOMI, JAIME, MMM Chest: Clear breath sounds bilaterally, no wheezes or crackles CVS: Regular rate and rhythm, normal heart sounds, no murmur Abdomen: Soft, mild tenderness from vomiting, not distended, normal bowel sounds Neuro: Awake, alert, oriented, conversing well, non focal Extremities: No cyanosis, clubbing or edema Results & Data Results & Data ([facility]) Vital Signs (Past 12 Hours) Vital Signs Temp Pulse Resp BP Pulse Ox 01/23/22 14:35 36.9 C 69 16 106/62 97 01/23/22 07:28 36.6 C 76 16 120/70 98 Laboratory Results Short CBC 01/22/22 01/23/22 01/23/22 Range/Units 22:43 05:29 05:29 WBC 13.03 H 10.67 (4.8-10.8) K/uL Hgb 13.3 12.1 11.9 L (12.0-16.0) g/dL Hct 38.9 36.3 L 35.0 L (37-47) % Plt Count 324 274 (130-400) K/uL 01/23/22 Range/Units 10:55 WBC (4.8-10.8) K/uL Hgb 12.8 (12.0-16.0) g/dL Hct 39.0 (37-47) % Plt Count (130-400) K/uL BMP 01/22/22 01/23/22 22:43 05:29 Sodium 139 139 Potassium 3.7 3.7 Chloride 108 H 113 H Carbon Dioxide 23 22 BUN 10 11 Creatinine 0.82 0.74 Glucose 102 H 107 H Calcium 9.2 8.3 L Liver Function 01/22/22 Range/Units 22:43 Total Bilirubin 0.3 (0.2-1.0) mg/dl Direct Bilirubin 0.0 (0-0.2) mg/dl AST 18 (13-39) U/L ALT 17 (7-52) U/L Alkaline Phosphatase 59 (34-104) U/L Albumin 4.3 (3.4-5.0) gm/dl Urine 01/22/22 Range/Units 22:25 Urine Color Yellow Urine Appearance Clear (Clear) Urine pH 6.0 (4.5-7.5) Ur Specific [place] 1.017 (1.000-1.030) Urine Protein Negative (Negative) Urine Glucose (UA) Negative (Negative) Diagnostic Findings Chest/Abdomen X-ray 01/22/22 22:24 PA CHEST RADIOGRAPH AND UPRIGHT AND SUPINE AP RADIOGRAPHS OF THE ABDOMEN CLINICAL HISTORY: vomiting COMPARISON STUDY: Chest radiograph and abdominal series January 20, 2022. CT of the abdomen and pelvis September 06, 2021. FINDINGS: Lung volumes are normal. Lungs are clear. No pneumothorax or pleural effusion. Cardiac size is normal. Mediastinal contours are normal. No evidence for pulmonary edema. There is no free air. The bowel gas pattern is normal. No evidence for a bowel obstruction. No calcifications are identified. IMPRESSION: 1. No free air or evidence of a bowel obstruction. 2. No acute cardiopulmonary findings. ACT 112: Negative or not required by law. Electronically signed by: Alexi Newell M.D. 01/23/2022 7:26 AM Medications Administered Current Inpatient Medications Acetaminophen (Acetaminophen 325 Mg Tab) 650 mg PO Q4H PRN PRN Reason: pain/fever Stop: 02/22/22 02:14 Albuterol (Albuterol Hfa 8 Gm Inhaler) 1 puffs INH QID PRN PRN Reason: Shortness Of Breath Stop: 02/22/22 02:14 Aripiprazole (Aripiprazole 10 Mg Tab) 20 mg PO DAILY ALVAREZ Stop: 02/22/22 08:59 Last Admin: 01/23/22 07:55 Dose: 20 mg Documented by: Famotidine (Famotidine 20 Mg Tab) 20 mg PO BID ALVAREZ Stop: 02/22/22 08:59 Last Admin: 01/23/22 07:55 Dose: 20 mg Documented by: Hydromorphone HCl (Hydromorphone Inj 0.5 Mg/0.5 Ml Syr) 0.5 mg IV Q4H PRN PRN Reason: Pain Stop: 02/06/22 02:14 Last Admin: 01/23/22 14:00 Dose: 0.5 mg Documented by: Pantoprazole Sodium 40 mg/ (Dextrose) 100 mls @ 20 mls/hr IV Q5H ALVAREZ Stop: 02/21/22 22:44 Last Admin: 01/23/22 16:06 Dose: 8 mg/hr, 20 mls/hr Documented by: Dextrose/Sodium Chloride (D5w And Nss) 1,000 mls @ 100 mls/hr IV .Q10H ALVAREZ Stop: 02/22/22 02:14 Last Admin: 01/23/22 11:31 Dose: 100 mls/hr Documented by: Lamotrigine (Lamotrigine 100 Mg Tab) 150 mg PO QAM ALVAREZ Stop: 02/22/22 08:59 Last Admin: 01/23/22 07:54 Dose: 150 mg Documented by: Lamotrigine (Lamotrigine 25 Mg Tab) 75 mg PO PM ALVAREZ Stop: 02/22/22 20:59 Loperamide HCl (Loperamide Hcl 2 Mg Cap) 2 mg PO UD PRN PRN Reason: Diarrhea Stop: 02/22/22 02:14 Melatonin (Melatonin 3 Mg Tab) 9 mg PO HSZ PRN PRN Reason: Sleep Stop: 02/22/22 02:24 Ondansetron HCl (Ondansetron Inj 2 Mg/Ml 2 Ml Vial) 4 mg IV Q6H PRN PRN Reason: Nausea Stop: 02/22/22 02:14 Last Admin: 01/23/22 16:07 Dose: 4 mg Documented by: Oxycodone HCl (Oxycodone Hcl Ir 5 Mg Tab (Immediate Release)) 5 mg PO Q4 PRN PRN Reason: Pain Stop: 02/06/22 13:19 Prazosin HCl (Prazosin Hcl 1 Mg Cap) 2 mg PO HS ALVAREZ Stop: 02/22/22 20:59 Quetiapine Fumarate (Quetiapine Fumarate 25 Mg Tablet) 25 mg PO BID PRN PRN Reason: anxiety Stop: 02/22/22 02:14 Trazodone HCl (Trazodone Hcl 50 Mg Tab) 25 - 50 mg PO HS PRN PRN Reason: Sleep Stop: 02/22/22 02:14
[2022-01-23 18:02] LABS: Hematocrit (blood only) 39.7 % (37-47); Hemoglobin 13.2 g/dL (12.0-16.0)
[2022-01-23] MEDS: oxyCODONE HCL IR 5 MG TAB (IMMEDIATE RELEASE) PO PRN (20:48)
[2022-01-23] MEDS ORDERED: lamoTRIgine 25 MG TAB PO SCH (21:00)
[2022-01-23] MEDS ORDERED: PRAZOSIN HCL 1 MG CAP PO SCH (21:00)
[2022-01-24] MEDS: PANTOprazole 40 MG in DEXTROSE 5% 100 ML IV SCH ×2 (03:55→10:37)
[2022-01-24] MEDS: HYDROmorphone INJ 0.5 MG/0.5 ML SYR IV PRN ×2 (03:57→09:51)
[2022-01-24] MEDS: lamoTRIgine 100 MG TAB PO SCH (07:37)
[2022-01-24] MEDS: ARIPiprazole 10 MG TAB PO SCH (07:37)
[2022-01-24] MEDS: FAMOTIDINE 20 MG TAB PO SCH (07:38)
[2022-01-24] MEDS: oxyCODONE HCL IR 5 MG TAB (IMMEDIATE RELEASE) PO PRN ×3 (07:41→16:08)
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
[2022-01-24] MEDS ORDERED: LIDOCAINE 2% 2 ML VIAL/AMP(20MG/ML) INFIL ONE (09:16)
[2022-01-24] MEDS ORDERED: PROPOFOL IV EMULSION 10 MG/ML 20 ML VIAL IV ONE (09:16)
[2022-01-24] MEDS ORDERED: PANTOprazole 40 MG TAB PO SCH (10:00)
[2022-01-24] MEDS: D5W AND NSS 1,000 ML IV SCH (10:22)
--- NOTE | 2022-01-24 13:36 | Anesthesiology Progress Note ---
Date of Service January 24, 2022 Anesthesia Post Procedure Vital Signs Vital Signs: Temp Pulse Resp BP Pulse Ox 01/24/22 09:47 36.9 C 86 18 115/78 99 01/24/22 09:36 65 16 102/48 L 100 01/24/22 09:21 64 16 111/48 L 100 01/24/22 09:06 76 18 104/51 L 99 01/24/22 08:12 37.1 C 65 14 114/67 98 01/24/22 07:19 36.6 C 81 16 122/72 97 01/23/22 22:39 36.7 C 86 17 93/58 L 98 01/23/22 14:35 36.9 C 69 16 106/62 97 Pain Intensity Bilateral Upper Abdomen: Pain Intensity: 7 Transfer of Care Handoff Completed per policy Notes Mental Status: alert / awake / arousable and participated in evaluation Patient Amnestic to Procedure: Yes Nausea / Vomiting: adequately controlled Pain: adequately controlled Airway Patency, RR, SpO2: stable & adequate BP & HR: stable & adequate Hydration State: stable & adequate Anesthetic Complications: no major complications apparent and Pt Satisfied with anesthetic care
[2022-01-24 15:25] LABS: Adenovirus F 40/41 PCR Not Detected (NotDetected); Astrovirus PCR Not Detected (NotDetected); Campylobacter PCR Not Detected (NotDetected); Clostridium diff Toxin A/B PCR Not Detected (NotDetected); Cryptosporidium PCR Not Detected (NotDetected); Cyclospora cayetanensis PCR Not Detected (NotDetected); Entamoeba histolytica PCR Not Detected (NotDetected); Enteroaggregative E.coli(EAEC) Not Detected (NotDetected); Enteropathogenic E.coli (EPEC) Not Detected (NotDetected); Enterotoxigenic E.coli (ETEC) Not Detected (NotDetected); Giardia lamblia PCR Not Detected (NotDetected); Norovirus GI/GII PCR Not Detected (NotDetected); Plesiomonas shigelloides PCR Not Detected (NotDetected); Rotavirus A PCR Not Detected (NotDetected); Salmonella PCR Not Detected (NotDetected); Sapovirus PCR Not Detected (NotDetected); Shiga-like Toxin E.coli (STEC) Not Detected (NotDetected); Shigella/Enteroinvasive E.coli Not Detected (NotDetected); Vibrio cholerae PCR Not Detected (NotDetected); Vibrio species PCR Not Detected (NotDetected); Yersinia enterocolitica PCR Not Detected (NotDetected)
--- NOTE | 2022-01-24 16:01 | Discharge Summary ---
Date of Service January 24, 2022 Admission HPI Per Admitting Provider This 21-year-old female with past medical history significant for nonseasonal allergic rhinitis due to pollen, dysmenorrhea, menorrhagia, depression with anxiety, comes with nausea, vomiting, and abdominal pain ongoing for the last 1 week. The patient was in the ER,recently and Abdominal x-ray done was unremarkable, was not getting better, comes again to the hospital. She has several episodes of nausea, vomiting and abdominal pain, and diarrhea. She states she has couple of episodes of blood in the vomitus. One time, she was not sure because she just ate pizza and there could be some sauce in it. Her hemoglobin is stable and hemodynamically stable. She had this pain in the past and EGD and colonoscopy was done at that time and she was told that she has some gastritis and diverticulosis as per the patient. Currently, resting comfortably, hemodynamically stable. Denies any headache. No blurred visions, no earache, no runny nose, no sore throat, no cough, no chest pain or shortness of breath, no blood in the stools. Normal bladder movements. No swelling in the legs. Admission Exam Per Admitting Provider GENERAL: The patient is of moderate build, not in acute distress. VITAL SIGNS: Temperature 37.7, pulse 80, respiratory rate 17, blood pressure 117/63, oxygen 100% on room air. HEENT: Pupils equal, round and reactive to light. Oral mucosa somewhat dry. NECK: No JVD, no neck masses. CARDIOVASCULAR: S1 and S2 heard. Regular rate and rhythm. No murmur, no gallop. RESPIRATORY SYSTEM: Normal AP diameter. No accessory muscle use. No wheezing, no crackles. ABDOMEN: Soft, bowel sounds somewhat sluggish. Diffuse tenderness present with guarding. No rigidity, no distention. CENTRAL NERVOUS SYSTEM: Cranial nerves II-XII are grossly intact, nonfocal. EXTREMITIES: No edema, no erythema. Principal Diagnosis Vomiting diarrhea possibly due to viral gastroenteritis Discharge Exam General: Lying comfortably in bed, not in distress, on room air HEENT: EOMI, JAIME, MMM Chest: Clear breath sounds bilaterally, no wheezes or crackles CVS: Regular rate and rhythm, normal heart sounds, no murmur Abdomen: Soft, mild periumbilical tenderness, not distended, normal bowel sounds Neuro: Awake, alert, oriented, conversing well, non focal Extremities: No cyanosis, clubbing or edema Discharge Data Allergies Allergy/AdvReac Type Severity Reaction Status Date / Time diphenhydramine AdvReac Severe Anxiety Verified 01/24/22 08:12 [From Benadryl] promethazine AdvReac Intermediate Anxiety Verified 01/24/22 08:12 nicotine [From Nicoderm CQ] AdvReac Rash Verified 01/24/22 08:12 Consultations 01/23/22 00:09 ED Decision to Admit Stat 01/23/22 08:00 Consult Gastroenterology Routine Procedures Performed Operation Date: 01/24/22 16:30 Actual Procedures p EGD Biopsy Cytology - Morris Sinha MD Hospital Course (1) Vomiting and diarrhea: 21-year-old female presented to ED with intractable nausea and vomiting with diarrhea for the past week. Diarrhea was improving but still with persistent nausea and vomiting when she came to the ED. She was managed conservatively with improvement. Her EGD was unremarkable- biopsy still pending. UDS with opiates but otherwise unremarkable. Denies any substance abuse, no marijuana since over 1 year now. Per her, her mental health provider states her meds are not the cause of her symptoms and there has been no new meds for the past couple years. Likely her symptoms are from viral gastroenteritis but is signficantly improved. She is tolerating regular diet well without any issues. Her vomiting has resolved, she does have some zofran ODT at home in case she needs it. She is comfortable and stable for discharge. recommend follow up with PCP and with GI for biopsy results. Total Time Total Time Spent Total Time Spent (In Minutes): 35 Discharge Plan Discharge Items Patient Disposition: Home - Self-Care Reason For Visit: NAUSEA / VOMITING Discharge Diagnosis: Nausea, vomiting, diarrhea likely due to viral gastroenteritis Activity: Resume your previous activity Non-emergency contact: Primary Care Provider Call non-emergency contact if: you have any medication questions, your symptoms worsen and your pain is concerning for you Follow-up/Referrals: Ernesto Bolton MD [Primary Care Provider] - Diet: Regular Addtl Attending Provider Instructions: You can take tylenol as needed for pain. Follow up with your family doctor. Follow up with GI for the biopsy results. Pending Studies at Discharge: Yes Studies:: EGD biopsy Stand-Alone Forms: [facility], Work/School Release, Smoking Cessation Medications and DC Order Prescriptions: Continued albuterol sulfate [Ventolin HFA] 90 mcg/actuation HFA aerosol inhaler 1 inh inhalation QID PRN (Reason: SOB) RF: 0 quetiapine 25 mg tablet 25 mg PO BID PRN (Reason: anxiety) RF: 0 acetaminophen [Tylenol Extra Strength] 500 mg Tablet 1,000 mg PO Q6H PRN (Reason: Pain) RF: 0 lamotrigine 150 mg tablet See Rx Instructions .ROUTE .COMPLEX RF: 0 loperamide 2 mg capsule 2 mg PO UD PRN (Reason: Diarrhea) RF: 0 aripiprazole 20 mg tablet 20 mg PO DAILY RF: 0 trazodone 50 mg tablet 25 - 50 mg PO HS PRN (Reason: Sleep) RF: 0 ondansetron 4 mg tablet,disintegrating 4 - 8 mg PO Q6H PRN (Reason: nausea and vomiting) Qty: 30 RF: 2 famotidine [Pepcid] 20 mg tablet 20 mg PO BID 42 Days Qty: 84 RF: 0 pantoprazole [Protonix] 40 mg tablet,delayed release (DR/EC) 40 mg PO DAILY 28 Days Qty: 28 RF: 2 prazosin 2 mg capsule 2 mg PO HS RF: 0 melatonin 5 mg tablet 10 mg PO HS RF: 0 Discharge Orders: Discharge Order (Routine); Ordered 01/24/22 Ordered By: Pino Hwang Admission Data Admit Date/Time: 01/23/22 01:29 Attending Provider: Pino Hwang Admit Provider: Calixto Dalton Primary Care Provider: Ernesto Bolton Other Providers: Calixto Dalton ; Marley Contreras Other Interventions: Discharge Summary Assessment (RN) Last Done: 01/24/22 09:21
--- NOTE | 2022-01-24 16:27 | GI REPORT ---
Patient Name: Kailyn Brown Procedure Date: 01/24/2022 8:30 AM Date of : 2000 Admit Type: Inpatient Age: 21 Gender: Female Attending MD: Morris Sinha MD Procedure: Upper GI endoscopy Providers: Morris Sinha MD Referring MD: Pino Hwang Md Indications: Hematemesis, Nausea with vomiting Medicines: See the Anesthesia note for documentation of the administered medications Complications: No immediate complications. Estimated Blood Loss: Estimated blood loss was minimal. Procedure: Pre-Anesthesia Assessment: - Prior to the procedure, a History and Physical was performed, and patient medications, allergies and sensitivities were reviewed. The patient's tolerance of previous anesthesia was reviewed. - The risks and benefits of the procedure and the sedation options and risks were discussed with the patient. All questions were answered and informed consent was obtained. - Patient identification and proposed procedure were verified prior to the procedure by the physician and the nurse. The procedure was verified in the pre-procedure area. - Pre-procedure physical examination revealed no contraindications to sedation. - After reviewing the risks and benefits, the patient was deemed in satisfactory condition to undergo the procedure. After obtaining informed consent, the endoscope was passed under direct vision. Throughout the procedure, the patient's blood pressure, pulse, and oxygen saturations were monitored continuously. The Endoscope was introduced through the mouth, and advanced to the third part of duodenum. The upper GI endoscopy was accomplished without difficulty. The patient tolerated the procedure well. Findings: The esophagus was normal. The entire examined stomach was normal. Biopsies were taken with a cold forceps for Helicobacter pylori testing. Verification of patient identification for the specimen was done by the physician and nurse using the patient's name and medical record number. Estimated blood loss was minimal. The examined duodenum was normal. The cardia and gastric fundus were normal on retroflexion. Impression: - Normal esophagus. - Normal stomach. Biopsied. - Normal examined duodenum. Recommendation: - Await pathology results. - [facility]. Morris Sinha M.D. Morris Sinha MD 01/24/2022 4:27:04 PM This report has been signed electronically. Note Initiated On: 01/24/2022 8:30 AM Number of Addenda: 0 I attest to the content of the Intraoperative Record and orders documented therein, exceptions below {[id number]}
[2022-01-25 16:07] LABS: Codeine Urine NEGATIVE ng/mL (<50); Hydrocodone Urine NEGATIVE ng/mL (<50); Hydromor Urine 366 ng/mL (<50); Morphine Urine 1090 ng/mL (<50); Norhydrocodone Conf Ur NEGATIVE ng/mL (<50); Noroxycodone Urine NEGATIVE ng/mL (<50); Oxycodone Urine NEGATIVE ng/mL (<50); Oxymorph Urine NEGATIVE ng/mL (<50)
== END 2022-01-24 16:56 | disposition home or self-care (01) ==
LOC: 3W 22:01 → ED 22:01 → SUATTDRO 01-23 01:29 → 3W 01-23 02:02

== ENCOUNTER 2022-05-02 19:48 | Observation (INO) ==
[2022-05-02] MEDS ORDERED: SODIUM CHLORIDE 0.9% 1000ML 1,000 ML IV ONE (22:03)
[2022-05-02] MEDS ORDERED: MoRPHine SULFATE 4 MG/ML 1 ML CARP\\VIAL IV STA (22:03)
[2022-05-02] MEDS ORDERED: ONDANSETRON INJ 2 MG/ML 2 ML VIAL IV STA (22:03)
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
[2022-05-02 22:13] LABS: Hematocrit (blood only) 41.1 % (34.1-44.9); Hemoglobin 13.9 g/dl (12.0-16.0); Mean Corpuscular Hemoglobin 27.1 pg (25.0-34.0); Mean Corpuscular Hgb Conc 33.8 g/dL (32.0-36.0); Mean Corpuscular Volume 80.3 fL (80.0-100.0); Mean Platelet Volume 11.5 fL (9.4-12.3); Platelet Count 353 K/uL (130-400); RDW Coefficient of Variation 12.6 % (11.5-14.5); RDW Standard Deviation 35.8 fL (36.4-46.3); Red Blood Count 5.12 M/uL (3.93-5.22); White Blood Count 14.68 K/ul (4.8-10.8)
[2022-05-02 22:56] LABS: Albumin Globulin Ratio 1.6 (0.9-2); Albumin Level 4.4 gm/dl (3.4-5.0); BUN Creatinine Ratio 9.3 (10-20); Bilirubin,Total 0.5 mg/dl (0.2-1.0); Calcium 9.6 mg/dl (8.5-10.1); Creatinine Clr Calc Pharmacy 125.4 ml/min; Est GFR (African American) 132.1 ml/min; Est GFR (Non-African American) 113.9 ml/min; Globulin 2.8 gm/dl (2.5-4.0); Potassium 4.1 mmol/L (3.5-5.1); Total Protein 7.2 gm/dl (6.0-8.3)
[2022-05-03 00:13] LABS: Basophils # (auto) 0.02 K/uL (0-0.2); Basophils % (auto) 0.1 %; Immature Granulocytes # (auto) 0.06 K/uL (0.00-0.02); Immature Granulocytes % (auto) 0.4 %; Lymphocytes # (auto) 0.99 K/uL (1.2-3.4); Lymphocytes % (auto) 6.7 %; Monocytes # (auto) 0.28 K/uL (0.24-0.82); Monocytes % (auto) 1.9 %; Neutrophils # (auto) 13.33 K/uL (1.4-6.5); Neutrophils % (auto) 90.9 %; RBC Morphology Unremarkable
[2022-05-03] MEDS ORDERED: OPTIRAY 320 100ml IV ONE (01:16)
[2022-05-03 01:49] LABS: Appearance Urine Clear (Clear); Bilirubin Urine Negative (Negative); Blood Urine Negative (Negative); Color Urine Yellow; Glucose Urine UA Negative (Negative); Ketones Urine Negative (Negative); Leukocyte Esterase Urine Negative (Negative); Nitrite Urine Negative (Negative); Protein Urine Negative (Negative); Specific Gravity Urine 1.037 (1.000-1.030); Urobilinogen Urine Negative (Negative); pH Urine 6.5 (4.5-7.5)
[2022-05-03] MEDS ORDERED: MoRPHine SULFATE 4 MG/ML 1 ML CARP\\VIAL ONE (02:02)
[2022-05-03] MEDS ORDERED: MoRPHine SULFATE 4 MG/ML 1 ML CARP\\VIAL IV STA (02:03)
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
[2022-05-03] MEDS: LACTATED RINGER'S 1,000 ML IV SCH ×2 (03:13→06:03)
[2022-05-03] MEDS: ONDANSETRON INJ 2 MG/ML 2 ML VIAL IV SCH ×3 (03:15→15:01)
[2022-05-03 04:25] LABS: Basophils # (auto) 0.02 K/uL (0-0.2); Basophils % (auto) 0.1 %; Hematocrit (blood only) 37.3 % (34.1-44.9); Hemoglobin 12.4 g/dl (12.0-16.0); Immature Granulocytes # (auto) 0.09 K/uL (0.00-0.02); Immature Granulocytes % (auto) 0.6 %; Lymphocytes # (auto) 1.69 K/uL (1.2-3.4); Lymphocytes % (auto) 10.4 %; Mean Corpuscular Hemoglobin 27.2 pg (25.0-34.0); Mean Corpuscular Hgb Conc 33.2 g/dL (32.0-36.0); Mean Corpuscular Volume 81.8 fL (80.0-100.0); Mean Platelet Volume 10.3 fL (9.4-12.3); Monocytes # (auto) 1.09 K/uL (0.24-0.82); Monocytes % (auto) 6.7 %; Neutrophils # (auto) 13.41 K/uL (1.4-6.5); Neutrophils % (auto) 82.2 %; Platelet Count 301 K/uL (130-400); RDW Coefficient of Variation 12.7 % (11.5-14.5); RDW Standard Deviation 37.8 fL (36.4-46.3); Red Blood Count 4.56 M/uL (3.93-5.22)
[2022-05-03] MEDS ORDERED: ALBUTEROL HFA 8 GM INHALER INH PRN (04:43)
[2022-05-03] MEDS ORDERED: QUEtiapine FUMARATE 25 MG TABLET PO PRN (04:43)
[2022-05-03 04:45] LABS: Alanine Aminotransferase 23 U/L (7-52); Albumin Globulin Ratio 1.7 (0.9-2); Albumin Level 3.8 gm/dl (3.4-5.0); Alkaline Phosphatase 56 U/L (34-104); Anion Gap 6 (3-11); Aspartate Aminotransferase 23 U/L (13-39); BUN Creatinine Ratio 7.6 (10-20); Bilirubin,Total 0.5 mg/dl (0.2-1.0); Blood Urea Nitrogen 5 mg/dl (6-23); Calcium 8.6 mg/dl (8.5-10.1); Carbon Dioxide 22 mmol/L (21-32); Chloride 107 mmol/L (98-107); Creatinine Clr Calc Pharmacy 142.5 ml/min; Est GFR (African American) 146.4 ml/min; Est GFR (Non-African American) 126.3 ml/min; Globulin 2.3 gm/dl (2.5-4.0); Glucose 120 mg/dl (70-99(Fasting)); Lipase 12 U/L (11-82); Sodium 135 mmol/L (136-145); Total Protein 6.1 gm/dl (6.0-8.3)
[2022-05-03] MEDS ORDERED: traZODone HCL 50 MG TAB PO PRN (04:51)
[2022-05-03] MEDS ORDERED: ALBUTEROL 0.083% NEBU SOLN 3 ML VIAL NEB STA (05:01)
--- NOTE | 2022-05-03 05:12 | Hospitalist Consultation ---
Date of Consultation May 03, 2022 Assessment & Plan (1) Chest pain: Final Assessment and Recommendations as follows : Pleuritic postop chest pain with hemoptysis symptoms Musculoskeletal component given anterior chest wall tenderness Recent outpatient cholecystectomy/hernia repair Rule out pulm embolism RLE pain/swelling rule out DVT hx PUD anxiety, mood disorder, at baseline hx IBS constipation predominant as per records hyperglycemia rule out DM Ongoing tobacco abuse CT chest PE study as already ordered by primary service. RLE venous Dopplers rule out DVT Check hemoglobin A1c Nicotine patch as needed DVT prophylaxis. SCDs as per admitting orders. May need pharmacologic anticoagulation pending blood clot work-up. Thank you very much for this consultation. Dr. Galindo will follow patient's progress. Text document was generated using [employer] voice recognition software. It may contain grammatical or spelling errors. Kindly contact undersigned for clarification of any documentation item in question. History of Present Illness Reason for Consultation: Chest pain Requesting Physician: Dr. Troncoso/Cl Bhatia PA-C Attending Physician: Samir Tronocso DO History of Present Illness PCP : Dr. Bolton History obtained from patient and records. Medical history significant for anxiety, mood disorder, history nightmares on prazosin, IBS constipation predominant as per records gastric ulcers as per re cords. Last confinement January 2022 for viral gastroenteritis. Patient underwent elective laparoscopic cholecystectomy for biliary dyskinesia along with umbilical hernia repair at same-day surgery yesterday. Post procedure, patient experience achy upper abdominal pain with nausea and emesis. No fever, no chills. Poor appetite. Hemoptysis at home along with right lower leg more swollen than usual. Patient returned to ER last night and subsequently admitted by General Surgery for postop abdominal pain. This morning, patient complained of pleuritic chest tightness and shortness of breath relieved by breathing treatment administered on the floor. Patient currently comfortable. 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 Home Medications Medication Instructions Recorded Confirmed Type albuterol sulfate 90 mcg/actuation 1 inh INHALATION QID PRN 04/29/21 05/02/22 History aerosol inhaler (Ventolin HFA) quetiapine 25 mg tablet (Seroquel) 12.5 - 25 mg PO DAILY PRN 05/09/21 05/02/22 History aripiprazole 20 mg tablet (Abilify) 20 mg PO QAM 07/29/21 05/02/22 History lamotrigine 150 mg tablet See Rx Instructions .ROUTE .COMPLEX 07/29/21 05/02/22 History (Lamictal) trazodone 50 mg tablet 75 - 100 mg PO HS 07/29/21 05/02/22 History melatonin 5 mg tablet 10 mg PO HS 01/22/22 05/02/22 History prazosin 2 mg capsule (Minipress) 2 mg PO HS 01/22/22 05/02/22 History pantoprazole 40 mg tablet,delayed 40 mg PO QAM 04/28/22 05/02/22 History release (Protonix) tramadol 50 mg tablet 50 mg PO Q6 PRN 04/28/22 05/02/22 History ondansetron 4 mg disintegrating 4 mg PO Q6H PRN 04/29/22 05/02/22 History tablet oxycodone-acetaminophen 5 mg-325 1 tab PO Q6H PRN #10 tab 05/02/22 05/02/22 Rx mg tablet (Percocet) Patient History Medical History ADD (attention deficit disorder) ADHD Anxiety Follows up with [facility] psych and [facility] Asthma Inhaler prn Constipation Miralax prn Depression Follows up with [facility] psych and [facility] Head trauma 2008 due to [employer] accident; s/p cranial reconstruction Hematemesis - Had EGD 01/24/22 for possible hematemesis. EGD unremarkable per 01/24/22 Discharge Summary - Did have one episode of possible mild hematemesis 1 week after EGD - patient discussed with GI- felt secondary EGD per patient- no follow up needed with GI- no issues with hematemesis since mid January 2022 History of anesthesia reaction "Pt states she gets very anxious almost panicked before anesthesia, also gets very nauseous before anesthesia" History of COVID-19 01/2021, clinic test, not hospitalized, runny nose, congestion, cough, loss of smell>resolved. Hx of fracture of ankle History- not current Rt., no sx IBS (irritable bowel syndrome) Migraines Neurontin prn Surgical History H/O craniotomy History of esophagogastroduodenoscopy (EGD) History of knee surgery Bilateral; x3 each knee Hx of colonoscopy [place] teeth removed Family History Other Adopted Social History Smoking Status: Current every day smoker Tobacco Type: E-cigarettes / Vaping Cigarettes Per Day: vapes/daily; Second Hand Exposure: Yes ("as a child"); Hx Alcohol Use: No Hx Substance Use: No Preferred Language: Kosovan Communication Ability: Effective Deal [employer] Required: No Beliefs That Will Affect Care: None marital status: Single Current Living Situation: Parent Current Living Situation Comment: Lives with parents Other Information That Helps Us Care for You: No Feels Safe at Home: Yes Safety Concerns: Feels Safe At This Time Assistive Devices: Glasses Review of Systems Review of Systems: As per HPI, all other systems reviewed and negative Physical Exam Physical Exam: GENERAL: Comfortable, pleasant, obese, no respiratory distress SKIN: Normal color, warm HEENT: Bespectacled, pink palpebral conjunctivae, no ptosis, dry buccal mucosa NECK : Supple, short neck, no tenderness CHEST : CTA, anterior chest wall tenderness HEART : RRR, no obvious murmurs ABDOMEN: Some distention, epigastric tenderness EXTREMITIES : Minimal LE swelling, RLE tenderness, no other conspicuous deformities noted NEUROLOGIC : Coherent, no facial asymmetry, no other gross focality Results & Data Results & Data ([facility]) Vital Signs (Past 12 Hours) Vital Signs Pulse Resp BP Pulse Ox 05/03/22 01:42 90 21 98 05/02/22 19:59 130 H 21 141/96 H 98 Laboratory Results Laboratory Results WBC 16.30 K/ul (4.8-10.8) H 05/03/22 04:15 RBC 4.56 M/uL (3.93-5.22) 05/03/22 04:15 Hgb 12.4 g/dl (12.0-16.0) 05/03/22 04:15 Hct 37.3 % (34.1-44.9) 05/03/22 04:15 MCV 81.8 fL (80.0-100.0) 05/03/22 04:15 MCH 27.2 pg (25.0-34.0) 05/03/22 04:15 MCHC 33.2 g/dL (32.0-36.0) 05/03/22 04:15 RDW Std Deviation 37.8 fL (36.4-46.3) 05/03/22 04:15 RDW Coeff of Matilda 12.7 % (11.5-14.5) 05/03/22 04:15 Plt Count 301 K/uL (130-400) 05/03/22 04:15 MPV 10.3 fL (9.4-12.3) 05/03/22 04:15 Immature Gran % (Auto) 0.6 % 05/03/22 04:15 Neut % (Auto) 82.2 % 05/03/22 04:15 Lymph % (Auto) 10.4 % 05/03/22 04:15 Knott % (Auto) 6.7 % 05/03/22 04:15 Eos % (Auto) 0.0 % 05/03/22 04:15 Baso % (Auto) 0.1 % 05/03/22 04:15 Neut # (Auto) 13.41 K/uL (1.4-6.5) H 05/03/22 04:15 Lymph # (Auto) 1.69 K/uL (1.2-3.4) 05/03/22 04:15 Knott # (Auto) 1.09 K/uL (0.24-0.82) H 05/03/22 04:15 Eos # (Auto) 0.00 K/uL (0-0.50) 05/03/22 04:15 Baso # (Auto) 0.02 K/uL (0-0.2) 05/03/22 04:15 Immature Gran # (Auto) 0.09 K/uL (0.00-0.02) H 05/03/22 04:15 RBC Morphology Unremarkable 05/02/22 19:55 Sodium 135 mmol/L (136-145) L 05/03/22 04:15 Potassium 4.0 mmol/L (3.5-5.1) 05/03/22 04:15 Chloride 107 mmol/L (98-107) 05/03/22 04:15 Carbon Dioxide 22 mmol/L (21-32) 05/03/22 04:15 Anion Gap 6 (3-11) 05/03/22 04:15 BUN 5 mg/dl (6-23) L 05/03/22 04:15 Creatinine 0.66 mg/dl (0.6-1.2) 05/03/22 04:15 Est Cr Clr Drug Dosing 142.5 ml/min 05/03/22 04:15 Est GFR ( Amer) 146.4 ml/min 05/03/22 04:15 Est GFR (Non-Af Amer) 126.3 ml/min 05/03/22 04:15 BUN/Creatinine Ratio 7.6 (10-20) L 05/03/22 04:15 Glucose 120 mg/dl (70-99(Fasting)) H 05/03/22 04:15 Calcium 8.6 mg/dl (8.5-10.1) 05/03/22 04:15 Total Bilirubin 0.5 mg/dl (0.2-1.0) 05/03/22 04:15 AST 23 U/L (13-39) 05/03/22 04:15 ALT 23 U/L (7-52) 05/03/22 04:15 Alkaline Phosphatase 56 U/L (34-104) 05/03/22 04:15 Total Protein 6.1 gm/dl (6.0-8.3) 05/03/22 04:15 Albumin 3.8 gm/dl (3.4-5.0) 05/03/22 04:15 Globulin 2.3 gm/dl (2.5-4.0) L 05/03/22 04:15 Albumin/Globulin Ratio 1.7 (0.9-2) 05/03/22 04:15 Lipase 12 U/L (11-82) 05/03/22 04:15 Urine Color Yellow 05/03/22 Unknown Urine Appearance Clear (Clear) 05/03/22 Unknown Urine pH 6.5 (4.5-7.5) 05/03/22 Unknown Ur Specific [place] 1.037 (1.000-1.030) H 05/03/22 Unknown Urine Protein Negative (Negative) 05/03/22 Unknown Urine Glucose (UA) Negative (Negative) 05/03/22 Unknown Urine Ketones Negative (Negative) 05/03/22 Unknown Urine Blood Negative (Negative) 05/03/22 Unknown Urine Nitrite Negative (Negative) 05/03/22 Unknown Urine Bilirubin Negative (Negative) 05/03/22 Unknown Urine Urobilinogen Negative (Negative) 05/03/22 Unknown Ur Leukocyte Esterase Negative (Negative) 05/03/22 Unknown SARS-CoV-2, RNA, NAAT NEGATIVE (NEGATIVE) 05/03/[address] abdomen pelvis initial read: There are surgical changes of a cholecystectomywithout concerning finding or organized fluid collection. Asmall amount of inflammatorystranding at the umbilicus is nonspecific and maybe postsurgical, infectious or inflammatory. The solid organs are within normal limits. No bowel obstruction. Normal appendix. Significant stool in the colon is concerning for constipation. Chest x-ray as per my interpretation atelectasis, elevated right hemidiaphragm EKG as per my interpretation : Rate 70, NSR, normal axis, no ischemia
[2022-05-03 05:25] LABS: Partial Thromboplastin Time 27.9 Seconds (21.0-31.0)
[2022-05-03 05:30] LABS: Magnesium 1.8 mg/dl (1.7-2.4)
[2022-05-03] MEDS ORDERED: XOPENEX/ATROVENT 1.25mg/0.5MG NEB COMBO NEB PRN (05:45)
[2022-05-03] MEDS ORDERED: MAGNESIUM SULFATE / D5W 1 GM/100 ML BAG IV ONE (05:45)
[2022-05-03] MEDS ORDERED: IPRATROPIUM BROMIDE NEB SOLN 0.02% 2.5 ML VIAL INH PRN (05:45)
[2022-05-03] MEDS ORDERED: LEVALBUTEROL 1.25MG/0.5ML NEB INH PRN (05:45)
[2022-05-03 05:51] LABS: Troponin I High Sensitivity < 2.3 pg/ml (0-14)
[2022-05-03] MEDS ORDERED: OPTIRAY 320 125ml IV ONE (05:51)
[2022-05-03] MEDS: MoRPHine SULFATE 4 MG/ML 1 ML CARP\\VIAL IV PRN ×2 (06:00→12:21)
--- NOTE | 2022-05-03 06:03 | Communication Note ---
Date of Service: May 03, 2022 I was called by nursing staff at approximately 4:45 AM saying the patient was complaining of some chest pressure. I was able to evaluate the patient at bed side approximately 5 minutes after this call. I question the patient and she continues to complain of abdominal pain similar to what was noted at time of mission. In addition the patient says that she feels as though she has some pressure in her chest. She notes that this pressure does not radiate to her arms or jaw. She did not exhibit any diaphoresis. She says she does not feel short of breath although she does report that she has similar issues when she feels as though she has an asthma attack developing. She denies any nausea vomiting with her current symptomatology. No fevers noted. On physical exam the patient's blood pressure was 136/96. She is afebrile with a temperature 37.0. Respirations are 16 and unlabored. Her pulse is 80 and regular. Pulse ox is 100% on room air. On auscultation her lungs are clear to auscultation. Cardiovascular exam revealed regular rate and rhythm. Her extremities are warm and well-perfused without mottling. I obtained a chest x-ray that did not show any evidence of pneumothorax or pneumonia. An EKG showed normal sinus rhythm without any changes indicative of acute ischemia. The patient did have repeat labs. White blood cell count is now 16.3. Her hemoglobin and hematocrit remain normal as does her platelet count. Chemistry profile shows sodium is 135 with a normal potassium. BUN is 5 and creatinine is 0.6. Her LFTs and lipase remain normal. A troponin was checked and was nonelevated. Upon further questioning the patient does note that since her surgery she is coughed up "a few blood clots.". Due to the above-noted symptoms we will check a CT scan to evaluate for pulmonary embolism. I have also requested hospitalist consultation with Dr. Nguyễn of the [facility] hospitalist service for further evaluation of these complaints.
--- NOTE | 2022-05-03 07:07 | CT Scan Report ---
CT angio chest PE protocol CLINICAL HISTORY: PE TECHNIQUE: Multidetector row helical CT of the chest was performed with angiographic protocol. Apodaca l and sagittal reformations were obtained. Coronal and sagittal MIPS were obtained from the axial yoanna a set and were submitted for review. Automated dose lowering techniques and/or adjustment according to patient size were utilized for this exam. CT DOSE: 301.93 mGy.cm Comparison: None available at the time of this dictation. FINDINGS: Lungs and pleura: Atelectasis is seen at the left lung base. Heart and pericardium: Heart size is normal. No pericardial effusion. Vessels: No evidence of pulmonary embolism. Mediastinum and tracey: Unremarkable. Chest wall and lower neck: Unremarkable. Abdomen: Patient is status post Choletec. Bones: Unremarkable. IMPRESSION: No evidence of pulmonary embolism. ACT 112: Negative or not required by law. Electronically signed by: Saurabh Hernández M.D. 05/03/2022 7:05 AM
--- NOTE | 2022-05-03 07:31 | Ultrasound Report ---
RIGHT LOWER EXTREMITY VENOUS DOPPLER HISTORY: RLE pain/swelling COMPARISON STUDY: None. FINDINGS: There is normal compressibility, flow, and augmentation within the right lower extremity de ep venous system. IMPRESSION: No DVT within the right lower extremity ACT 112: Negative or not required by law. Electronically signed by: Mateo Menezes M.D. 05/03/2022 7:30 AM
--- NOTE | 2022-05-03 08:03 | XRay Report ---
XR chest 1V portable HISTORY: Shortness of breath with atypical chest pain COMPARISON: Chest 01/22/2022. FINDINGS: The lungs are clear. Cardiac silhouette is normal in size. No pleural effusions. No pneumot horax. Low lung volumes. IMPRESSION: No acute process. ACT 112: Negative or not required by law. Electronically signed by: Mateo Menezes M.D. 05/03/2022 8:01 AM
--- NOTE | 2022-05-03 08:23 | CT Scan Report ---
ABDOMEN AND PELVIS CT WITH IV CONTRAST CT DOSE: 715.04 mGy.cm HISTORY: POD 0 with generalized abdominal pain s/p cholecystectomy. TECHNIQUE: Multiaxial CT images of the abdomen and pelvis were performed following the use of intrave nous contrast. A dose lowering technique was utilized adhering to the principles of ALARA. COMPARISON STUDY: Abdomen and pelvis CT 03/31/2022. FINDINGS: Mild dependent changes seen at the lung bases. Trace pneumoperitoneum within the right uppe r quadrant. This is likely due to the recent cholecystectomy. No fractures within the visualized osse ous structures. Trace subcutaneous gas and edema within the periumbilical abdominal wall is likely du e to the prior port site. Trace fluid at the gallbladder fossa is likely within the range of normal l imits status post cholecystectomy. No loculated fluid collections to suggest an abscess, biloma, or h ematoma. The common bile duct is normal in caliber. The liver, spleen, adrenal glands, pancreas, and kidneys are unremarkable. There is contrast within the urinary system. A few prominent ileocolic lymp h nodes which are likely reactive. The main portal vein is patent. Normal caliber abdominal aorta. No retroperitoneal lymphadenopathy. There is a left retroaortic renal vein. No significant pelvic free fluid. No bladder wall thickening. The uterus and left ovary are unremarkable. There is a 2.8 cm righ t ovarian cyst. No bowel wall thickening or obstruction. Normal appendix. IMPRESSION: 1. Status post cholecystectomy with trace fluid at the gallbladder fossa and trace pneumoperitoneum l ikely representing residual postoperative change. No loculated fluid collections to suggest an absces s. 2. No bowel wall thickening or obstruction. 3. Normal appendix. 4. Additional findings as described above. ACT 112: Negative or not required by law. Electronically signed by: Mateo Menezes M.D. 05/03/2022 8:22 AM
[2022-05-03] MEDS: oxyCODONE HCL IR 5 MG TAB (IMMEDIATE RELEASE) PO PRN ×2 (08:43→17:00)
[2022-05-03 08:49] LABS: Estimated Average Glucose 94 mg/dl; Hemoglobin A1C 4.9 % (4.5-5.6)
[2022-05-03] MEDS ORDERED: lamoTRIgine 100 MG TAB PO SCH (09:00)
[2022-05-03] MEDS ORDERED: ARIPiprazole 10 MG TAB PO SCH (09:00)
[2022-05-03] MEDS ORDERED: lamoTRIgine 25 MG TAB PO SCH ×2 (09:00→21:00)
[2022-05-03] MEDS ORDERED: PANTOprazole 40 MG TAB PO SCH (09:00)
--- NOTE | 2022-05-03 11:17 | Nuclear Medicine Report ---
NUCLEAR MEDICINE HEPATOBILIARY SCAN HISTORY: Right upper quadrant pain. ? bile leak s/p lap cholecystectomy COMPARISON: None. TECHNIQUE: Immediately following the intravenous administration of 5.4 mCi Tc-99m Choletec, dynamic a nterior abdominal imaging was performed for total of 30 minutes. An additional static image of the ab domen was obtained at 55 minutes. FINDINGS: Uniform hepatic tracer accumulation is shown. Prompt intrahepatic biliary excretion is seen. The comm on bile duct and small bowel are visualized at 8 minutes. The patient is status post cholecystectomy. No extraluminal radiotracer identified to suggest a bile leak. IMPRESSION: Status post cholecystectomy with no evidence for a bile leak. ACT 112: Negative or not required by law. Electronically signed by: Mateo Menezes M.D. 05/03/2022 11:14 AM
--- NOTE | 2022-05-03 12:10 | Electrocardiogram Report ---
Test Reason : Blood Pressure : / mmHG Vent. Rate : 070 BPM Atrial Rate : 070 BPM P-R Int : 144 ms QRS Dur : 092 ms QT Int : 396 ms P-R-T Axes : 000 066 026 degrees QTc Int : 427 ms Normal sinus rhythm Normal ECG When compared with ECG of 29-JUL-2021 17:20, No significant change was found Confirmed by Shay Cameron ([id number]) on 05/03/2022 12:10:10 PM Referred By: REFERRED SELF Confirmed By:Destin Cameron
--- NOTE | 2022-05-03 12:54 | Communication Note ---
Date of Service: May 03, 2022 Patient seen and examined Reported that chest pain had resolved earlier Reports only central abd pain usually when trying to get up from bed. Denied any other complaints. Reports she moved bowel yesterday and has been passing flatus Exam notable for young obese woman in no distress, +abd tenderness, +Bowel sounds CT PE done overnight did not show any PE Dopplers of LE were negative for DVT Hepatobiliary scan did not show evidence of a bile leak Continue pain management per Primary team Ok to start diet Chest pain likely musculoskeletal. EKG did not show ischemic changes Other plans as detailed in consult note by Dr Lyman this morning
--- NOTE | 2022-05-03 16:02 | Discharge Summary ---
Date of Service May 03, 2022 Admission HPI Per Admitting Provider This is a 21-year-old female who presented to [facility] emergency department today secondary to abdominal pain. The patient underwent a laparoscopic cholecystectomy earlier today at [facility] by Dr. Blayne Yao of [facility] general surgery. Patient was able to be discharged home following her surgery. The patient notes that since her surgery she is only been able to eat very small amounts of foods like potato chips or crackers. She is also not been able to drink very much. She says that she has had some nausea and vomiting. She denies any fevers, shakes, or chills. She notes that she has abdominal pain that is located near each of her laparoscopic incisions as well as a generalized fashion in the right upper quadrant of her abdomen. She denies any radiation of the pain. She denies any provocative factors of the pain other than certain movements. She also adds that her abdominal pain is worse when she attempts to take a deep breath but denies any chest pain. She notes that the pain was alleviated somewhat with intravenous morphine that was given in the emergency department. In the emergency department at this time the patient did have a CT scan of her abdomen and pelvis. This showed findings consistent with a recent cholecystectomy. There is no findings suggestive of an organized fluid collection in the abdomen. There is some inflammatory stranding around the umbilicus which was felt to be nonspecific. There did not appear to be any intraperitoneal free air. Labs include a CBC were white blood cell count was 14.6. Her hemoglobin and hematocrit were noted to be normal. Platelet count is noted to be within the normal range. Chemistry profile showed sodium was 135 with a normal potassium. BUN and creatinine were noted to be normal. The patient's total bilirubin, AST, ALT, alkaline phosphatase, and lipase were all normal. Urinalysis was not indicative of infection. At the time of my exam the patient was resting comfortably in bed in no distress. The patient was noted to be normotensive with a blood pressure of 140/96. Her pulse was 90 and regular with a unlabored respiratory rate of 21. Her pulse ox was noted to be 98% on room air. Principal Diagnosis pain s/p lap cholecystectomy Discharge Data Allergies Allergy/AdvReac Type Severity Reaction Status Date / Time diphenhydramine AdvReac Severe LEGS GO Verified 05/03/22 13:30 [From Benadryl] NUMB, ANXIETY ATTACK, CRYING FOR 2-3 HOURS. nicotine [From Nicoderm CQ] AdvReac Intermediate Rash Verified 05/02/22 22:35 promethazine AdvReac Intermediate Anxiety Verified 05/02/22 22:35 Consultations 05/03/22 02:35 ED Decision to Admit Stat 05/03/22 05:08 Consult Hospitalist Stat Ordered Studies 05/02/22 22:02 CT abd pelvis IV con only Urgent 05/03/22 05:20 CT angio chest PE protocol Urgent 05/03/22 05:44 US venous doppler LE RT Urgent Hospital Course (1) Abdominal pain, right upper quadrant: (2) S/P laparoscopic cholecystectomy: 21-year-old status post laparoscopic cholecystectomy yesterday presented to the hospital overnight with postoperative significant pain in the right upper quadrant. Labs have been normal except for white count of 16. HIDA scan was negative. Chest CT scan and duplex lower extremity ultrasound were negative for clot. Throughout the day, she is tolerated diet without nausea or vomiting. Her pain has been controlled with pain medications. We will discharge her to home with Percocet and ibuprofen and she will follow-up in clinic in 2 weeks. Total Time Total Time Spent Total Time Spent (In Minutes): 30 minutes Discharge Plan Discharge Items Patient Disposition: Home - Self-Care Reason For Visit: ABD PAIN Discharge Diagnosis: Abdominal pain s/p laparoscopic cholecystectomy Condition on Discharge: Good Activity: Per Instructions section Non-emergency contact: Primary Care Provider and Surgeon Call non-emergency contact if: you have any medication questions, your pain is not controlled, your pain is worsening, your pain is concerning for you, you have a fever, your temperature is above 101, your wound has increased redness, your wound has increased drainage and your wound pain has increased Follow-up/Referrals: Ernesto Bolton MD [Primary Care Provider] - Diet: Regular Addtl Attending Provider Instructions: Post-Surgical ~Discharge Instructions Activity Recommendations: - lifting limitation: (20 pounds for 4 weeks), - exercise/sex/sports limit: (nonstrenuous for 2 weeks), - driving or machine use limit: (none for 1 week or until pain free and no longer taking narcotic pain medication), - Shower/bathe limit: (may shower tonight) Diet: - Resume previous diet SPECIAL CARE INSTRUCTIONS: - May shower tonight. Let water run over area and pat dry. - Surgical glue will fall off on its own. Do not pick at it. - Call the surgeon's office with any questions or concerns - - (ex. temperature higher than 101 degrees F, excessive bleeding or pain). MEDICATIONS: - Resume previous medications unless instructed otherwise by your surgeon. - May alternate extra strength Tylenol and Ibuprofen as needed for mild to moderate pain -650 mg Tylenol every 6 hours as needed - Ibuprofen 600 mg every 6 hours as needed (take with food and limit continuous use for no more than 3 days) - Percocet 1 every 6 hours, as needed for moderate to severe pain - Recommend daily stool softener (Colace) while taking narcotic pain medication to prevent constipation or straining. FOLLOW UP VISIT: - If not already scheduled, please call the office to schedule a two week follow-up appointment. Office number Pending Studies at Discharge: Yes (pathology report, will be reviewed at follow- up visit) Stand-Alone Forms: My [facility], Smoking Cessation Medications and DC Order Prescriptions: New oxycodone-acetaminophen [Percocet] 5-325 mg tablet 1 tab PO Q6H PRN (Reason: pain) Qty: 20 RF: 0 Continued albuterol sulfate [Ventolin HFA] 90 mcg/actuation HFA aerosol inhaler 1 inh inhalation QID PRN (Reason: SOB) RF: 0 tramadol 50 mg tablet 50 mg PO Q6 PRN (Reason: Pain) RF: 0 pantoprazole [Protonix] 40 mg tablet,delayed release (DR/EC) 40 mg PO QAM RF: 0 oxycodone-acetaminophen [Percocet] 5-325 mg tablet 1 tab PO Q6H PRN (Reason: pain) Qty: 10 RF: 0 quetiapine [Seroquel] 25 mg tablet 12.5 - 25 mg PO DAILY PRN (Reason: severe anxiety) RF: 0 lamotrigine [Lamictal] 150 mg tablet See Rx Instructions .ROUTE .COMPLEX RF: 0 aripiprazole [Abilify] 20 mg tablet 20 mg PO QAM RF: 0 trazodone 50 mg tablet 75 - 100 mg PO HS RF: 0 prazosin [Minipress] 2 mg capsule 2 mg PO HS RF: 0 melatonin 5 mg tablet 10 mg PO HS RF: 0 ondansetron 4 mg tablet,disintegrating 4 mg PO Q6H PRN (Reason: nausea and vomiting) RF: 0 Discharge Orders: Discharge Order (Routine); Ordered 05/03/22 Ordered By: Ochoa Yao Admission Data Admit Date/Time: 05/03/22 02:52 Attending Provider: Ochoa Yao Admit Provider: Ochoa Yao Primary Care Provider: Ernesto Bolton Other Providers: Samir Troncoso ; Dg Hamilton
--- NOTE | 2022-05-03 16:06 | Surgery Progress Note ---
Date of Service May 03, 2022 Assessment & Plan (1) Abdominal pain, right upper quadrant: (2) S/P laparoscopic cholecystectomy: Plan: 21-year-old status post laparoscopic cholecystectomy yesterday presented to the hospital overnight with postoperative significant pain in the right upper quadrant. Labs have been normal except for white count of 16. HIDA scan was negative. Chest CT scan and duplex lower extremity ultrasound were negative for clot. Throughout the day, she is tolerated diet without nausea or vomiting. Her pain has been controlled with pain medications. We will discharge her to home with Percocet and ibuprofen and she will follow-up in clinic in 2 weeks. Admission and Anticipated Discharge Date Admission Date: May 03, 2022 Subjective doing better; still some pain; tolerated diet Physical Exam Constitutional: WD/WN, vitals as above Neck: trachea midline, no thyromegaly Gastrointestinal (Abdomen): Inspection/Auscultation: abdomen normal to inspe ction and + abdominal surgical incision (C/D/I; dermabond); abdomen not distended Percussion/Palpation: + abdomen tender (epigastrium/RUQ) and abdomen soft; no guarding and abdomen not rigid Skin: no rashes, warm and dry Results & Data ([facility]) Vital Signs (Past 12 Hours) Vital Signs Temp Pulse Resp BP Pulse Ox 05/03/22 14:53 36.7 C 93 H 20 94/56 L 99 05/03/22 07:13 36.9 C 99 H 16 104/63 99 05/03/22 05:25 80 18 98 05/03/22 04:40 37.0 C 80 16 136/96 100
[2022-05-03] MEDS ORDERED: PRAZOSIN HCL 1 MG CAP PO SCH (21:00)
[2022-05-03] MEDS ORDERED: traZODone HCL 50 MG TAB PO SCH (21:00)
[2022-05-03] MEDS ORDERED: MELATONIN 3 MG TAB PO SCH (21:00)
== END 2022-05-03 17:28 | disposition home or self-care (01) ==
LOC: 3E 19:48 → ED 19:48 → 3E 05-03 04:23